=== PATIENT | female | born 1935 | race Caucasian/White ===

== ENCOUNTER 2017-12-18 09:17 | Inpatient (IN) | payer MEDICARE, OTHER ==
[~2017-12-18] VITALS: Ht 170.2 cm; Wt 48.2 kg
--- NOTE | ~2017-12-18 | EC ---
PATIENT:JOHN CHAUDHRY DATE OF SERVICE: 12/18/17 SEX: F MEDICAL RECORD: [id number] DATE OF : 33 LOCATION:D.M2 D.210 AGE OF PATIENT: 82 ADMISSION DATE: 12/19/17 REFERRING PHYSICIAN: INTERPRETING PHYSICIAN: LANDON BERNAL MD ECHOCARDIOGRAM REPORT ECHO CHARGES 4 ECHO COMPLETE CLINICAL DIAGNOSIS: TX/CHEST PAIN HX OF PACEMAKER ECHOCARDIOGRAPHIC MEASUREMENTS (adult normal given) AC root (d.<3.7cm) 3.5 cm LV Septum d (<1.2 cm> 1.9 cm Valve Excursion 1.6 cm LV Septum (systole) 2.1 cm Left Atria (s.<4.0cm> 3.9 cm LVPW d(<1.2cm) 1.9 cm RV (d.<2.3cm) 3.7 cm LVPW (sytole) 2.0 cm LV diastole(<5.6CM) 3.8 cm MV E-F(>70mm/sec) cm LV systole 2.1 cm LVOT Diameter 1.2 cm MV exc.(>10mm) 1.8 cm Est.ejection fraction (50-75%) % Pericardial Effusion N DOPPLER: LVIT cm/sec A 160 cm/sec E 131 cm/sec LA cm/sec RVSP 54 mmHg LVOT 78 cm/sec AOP1/2T 605 m/s Asc. Ao 158 cm/sec RVOT 98 cm/sec RA cm/sec PA 126 cm/sec AV Gradient Peak 10.0 mmHg AV Mean 4.66 mmHg AV Area 1.7 cm MV Gradient Peak 15.50mmHg MV Mean 7.55 mmHg MV Area cm COMMENTS: Field Operations Manager: Stephan ZARATE Staff [employer] Officer: 1 Dr. Bernal TAPE# PACS DATE OF SERVICE: 12/18/2017 FINDINGS: 1. Left ventricular chamber size is within normal limits. Left ventricular systolic function is normal. Overall ejection fraction is estimated at 60%. 2. Left atrium is within normal limits at 3.2 cm. Right atrium and right ventricle chamber sizes are moderately dilated. 3. Valvular structures have normal structure and motion. 4. Doppler interrogation reveals sdmqefcz-bx-sahqye aortic insufficiency, dxkj-mi-xddcooic mitral regurgitation, jftdkzja-by-frnwjw tricuspid ECHOCARDIOGRAM REPORT [id number] JOHN CHAUDHRY regurgitation. No other valvular insufficiency or stenosis. Pulmonary systolic pressure is elevated, estimated at 54 mmHg. 5. No evidence of pericardial effusion or left ventricular thrombus. TRANSINT:[id number] Voice Confirmation ID: [id number] DOCUMENT ID: [id number] LANDON BERNAL MD at 1025 CC: [id number] DICTATION DATE: 12/19/17 1124 CONSTRUCTION DRIVER: 12/19/17 1455 DIS IN 12/20/17 [place] [address] [place] [id number]
--- NOTE | ~2017-12-18 | DS ---
PATIENT:JOHN CHAUDHRY :33 MEDICAL RECORD: [id number] DISCHARGE SUMMARY ADMISSION DATE: 12/19/17 DISCHARGE DATE: 12/20/17 DATE OF DISCHARGE: 12/20/2017. DIAGNOSES: 1. Unstable angina. 2. Coronary artery disease. 3. Percutaneous transluminal coronary angioplasty stent, left anterior descending this admission. 4. Coumadin anticoagulation. 5. Atrial fibrillation, chronic. HOSPITAL COURSE: Ms. Chaudhry presents with anginal symptomatology. No history of ischemic heart disease, found to have significant disease of the LAD, underwent successful PTCA stent of the LAD. She was discharged home with Plavix times 1 month, restart Coumadin in 1 day after discharge. FOLLOWUP: With [facility] in 1 month. TRANSINT:[id number] Voice Confirmation ID: [id number] DOCUMENT ID: [id number] LANDON FLEMING MD at 1025 CC: [id number] DICTATION DATE: 12/20/17 1020 ROLLED [place] MILL OPERATOR: 12/20/17 1256 DIS IN 12/20/[address] [address]
--- NOTE | ~2017-12-18 | HEMODYNAMI ---
PATIENT:JOHN CHAUDHRY MEDICAL RECORD: [id number] : 33 [facility] D.2109 [id number] ADMISSION DATE: 12/19/17 Generatedon:12/20/201710:18 Patient name: JOHN CHAUDHRY Patient #: [id number] SSN: : 1935 Date of study: 12/20/2017 Page: Of Hemodynamic Procedure Report Patient Data Patient Demographics Procedure consent was obtained First Name: JOHN Gender: Female Last Name: RICHA : 1935 Middle Initial: R Age: 82 year(s) Patient #: [id number] Race: Additional ID: [id number] Contact details Address: [address] [place] [address] State: [place] City: [facility] Zip code: [address] Past Medical History Allergies Allergen Reaction Date Comments Reported Other allergy 12/20/2017 penicillin Admission Admission Data Admission Date: 12/19/2017 Admission Time: 18:25 Room #: D.2109 Lab Results Lab Result Date: 12/20/2017 Lab Result Time: 0:00 Biochemistry Name Units Result Min Max BUN mg/dl 25 --(----)-* 7 18 Creatinine mg/dl 1.5 --(----)-* 0.6 1.3 CBC Name Units Result Min Max Hemoglobin g/dl 12.4 *-(----)-- 13.5 17.5 Procedure Procedure Types Cath Procedure Diagnostic Procedure LHC LHC w/Coronaries FFR/IVUS Intra-Coronary IVUS Initial PCI Procedure Coronary Stent Coronary Stent Initial Miscellaneous Procedures Moderate Sedation up to 30 minutes Procedure Description Procedure Date Procedure Date: 12/20/2017 Procedure Start Time: 10:02 Procedure End Time: 10:17 Procedure Staff Name Function Mina Bernal MD Performing Physician Helen Musa RT Scrub Neena Cohen RN Nurse Guerita Manzano RT Monitor Indication Angina Procedure Data Cath Procedure Fluoroscopy Diagnostic fluoroscopy Total fluoroscopy Time: 3.6 time: 3.6 min min Diagnostic fluoroscopy Total fluoroscopy dose: 210 dose: 210 mGy mGy Contrast Material Contrast Material Type Amount (ml) Isovue 300 89 Entry Location Entry Primary Successful Side Size Upsize Upsize Entry Closure Succes sful Closure Location (Fr) 1 (Fr) 2 (Fr) Remarks Device Remarks Femoral Right 5 Fr 6 Fr Exoseal artery Short Estimated blood loss: 5 ml Diagnostic catheters Device Type Used For End Catheter Placement MULTIPACK Pigtail 5 Fr LV Angiography catheter MULTIPACK JL 4.0 5Fr Left Coronary catheter Angiography MULTIPACK 3DRC 5Fr Right Coronary catheter Angiography Procedure Complications No complications Procedure Medications Medication Administration Route Dosage 0.9% NaCl I.V. 100 ml/hr Oxygen NC 2 l/min Lidocaine 2% added to field 20 Heparin Flush Bag added to field 1 bags (1000units/500ml NS) Fentanyl I.V. 50 mcg Versed I.V. 1 mg Heparin Bolus I.V. 4000 units Hemodynamics Rest HGB: 12.4 (g/dl) Heart Rate: 76 (bpm) Pressure Samples Time Site Value (mmHg) Purpose Heart Use Rate(bpm) 10:04 LV 78/-1,11 Snapshot 79 Snapshots Pre Cath Intra NCS Post Cath Vital Signs Time Heart Resp SPO2 etCO2 NIBP (mmHg) Rhythm Pain Sedation Rate (ipm) (%) (mmHg) Status Level (bpm) 9:45:10 82 16 98 27.4 171/111(156) NSR 0 (11) 10(A) , No pain 9:49:36 86 15 98 17 167/76(152) NSR 0 (11) 10(A) , No pain 9:53:56 80 17 100 0 153/86(133) NSR 0 (11) 10(A) , No pain 9:58:12 81 18 96 0 129/77(109) NSR 0 (11) 10(A) , No pain 10:02:22 73 14 99 16.3 126/69(98) NSR 0 (11) 9(A) , No pain 10:06:32 83 17 100 19.3 128/66(90) NSR 0 (11) 9(A) , No pain 10:10:42 82 20 99 18.5 119/70(102) NSR 0 (11) 9(A) , No pain 10:14:48 81 20 99 20 124/71(87) NSR 0 (11) 10(A) , No pain Medications Time Medication Route Dose Verified Delivered Reason Not es Effectiveness by by 9:46:24 0.9% NaCl I.V. 100ml/hr Mina Chaudhary used for Gabe Cohen RN procedure 9:46:33 Oxygen NC 2 l/min Mina Chaudhary Per physician Gabe Cohen RN 9:46:45 Lidocaine 2% added 20ml Mina Enriquez for local to vial Gabe Bernal MD anesthetic field 9:46:53 Heparin Flush added 1 bags Mina Enriquez used for Bag to Gabe Bernal MD procedure (1000units/500ml field NS) 10:00:01 Fentanyl I.V. 50 mcg Mina Chaudhary for sedation Gabe Cohen RN 10:00:10 Versed I.V. 1 mg Mina Chaudhary for sedation Gabe Cohen RN 10:08:07 Heparin Bolus I.V. 4000 Mina Chaudhary for joanne ified units Gabe Cohen RN anticoagulation by Procedure Log Time Note 9:19:11 Informed consent obtained and on chart 9:19:14 Diagnostic Cath Status : Elective 9:19:55 Indication : Angina 9:20:02 Helen Musa RT(R) sent for patient. Start room use. 9:20:02 Time tracking: Regular hours 9:20:06 Plan of Care:Hemodynamics will remain stable., Cardiac rhythm will remain stable., Comfort level will be maintained., Respiratory function will remain adequate., Patient/ family verbilizes understanding of procedure., Procedure tolerated without complication., Recovers from procedure without complications.. 9:34:06 Patient received from Med II to CCL 2 Alert and oriented. Tansferred to table in Supine position. 9:36:38 Warm blankets applied, and chikis hugger turned on for patient comfort. 9:36:38 Correct patient and procedure confirmed by team. 9:36:39 ECG and BP/O2 sat monitors applied to patient. 9:36:40 Vital chart was started 9:46:24 0.9% NaCl 100ml/hr I.V. was administered by Neena Cohen RN; used for procedure; 9:46:33 Oxygen 2 l/min NC was administered by Neena Cohen RN; Per physician; 9:46:45 Lidocaine 2% 20ml vial added to field was administered by Mina Bernal MD; for local anesthetic; 9:46:53 Heparin Flush Bag (1000units/500ml NS) 1 bags added to field was administered by Mina Bernal MD; used for procedure; 9:53:03 Baseline sample Acquired. 9:53:10 Full Disclosure recording started 9:53:27 H&P Date Dictated: 12/18/2017 Within 30 days and on chart., H&P Addendum completed by physician on day of procedure. (MUST COMPLETE FOR ALL OUTPATIENTS). 9:53:29 Pre-procedure instructions explained to patient. 9:53:29 Pre-op teaching completed and patient verbalized understanding. 9:53:31 Family in waiting room. 9:53:33 Patient NPO since Midnight. 9:53:50 Patient allergic to Other allergypenicillin 9:53:52 Is the patient allergic to Iodine/contrast media? No. 9:53:53 Was the patient premedicated? No 9:54:09 Is patient on blood thinner?Yes 9:54:16 ACC The patient was administered the following blood thiners within the last 24 hours: ACCPlavix 9:54:46 pt states she last had coumadin on 12-18-17 9:54:48 Patient diabetic? No. 9:54:50 Previous problem with sedation/anesthesia? No ? 9:54:52 Snore? No 9:54:53 Sleep apnea? No 9:54:54 Deviated septum? No 9:54:55 Opens mouth fully? Yes 9:54:55 Sticks out tongue? Yes 9:54:57 Airway obstruction? No ? 9:54:59 Dentures? No ? 9:55:03 Pre procedure: right dorsailis pedis pulse 1+ Palpable, but thready & weak; easily obliterated 9:55:04 Pre procedure: left dorsailis pedis pulse 1+ Palpable, but thready & weak; easily obliterated 9:55:06 Patient pain scale 0/10 ?. 9:55:12 IV patent on arrival in right hand with 0.9% NaCl at O. 9:55:31 Lab Result : BUN 25 mg/dl 9:55:31 Lab Result : Creatinine 1.5 mg/dl 9:55:31 Lab Result : Hemoglobin 12.4 g/dl 9:55:34 Lab results completed and on chart. 9:55:39 Left groin area was prepped with chlora-prep and draped in sterile fashion 9:55:40 Alarms reviewed by R. N. 9:55:41 Sharps counted by scrub and verified by R.N. 9:58:46 Physician arrived 9:58:47 --------ALL STOP TIME OUT------ 9:58:48 Final Timeout: patient, procedure, and site verified with staff and physician. All members of the team are in agreement. 9:58:49 Left groin site verified by team. 9:58:52 Physical assessment completed. ASA score P 2 - A patient with mild systemic disease as per Mina Bernal MD. 9:58:56 Sedation plan: IV Moderate Sedation Medication:Versed, Fentanyl 9:59:01 Use device set Femoral Dx 9:59:02 ACIST Syringe (36313) opened to sterile field. 9:59:02 Bag Decanter (2002S) opened to sterile field. 9:59:02 Medline Cath Pack ([id number]) opened to sterile field. 9:59:03 SHEATH 5FR [place] (MHT164) opened to sterile field. 9:59:04 DIAGNOSTIC WIRE .035 260cm J wire (554821) opened to sterile field. 9:59:05 ACIST Hand Control (68097) opened to sterile field. 9:59:05 ACIST Manifold (70908) opened to sterile field. 9:59:06 DIAGNOSTIC Multipack 5Fr catheter set (YQ7333) opened to sterile field. 9:59:07 Tegaderm 4 x 4 (1626W) opened to sterile field. 10:00:01 Fentanyl 50 mcg I.V. was administered by Neena Cohen RN; for sedation; 10:00:10 Versed 1 mg I.V. was administered by Neena Cohen RN; for sedation; 10:02:17 Procedure started. 10:02:22 Local anesthetic to left femerol artery with Lidocaine 2% by Mina Bernal MD.INITIAL ACCESS ONLY 10:02:36 A 5 Fr sheath was inserted into the Right Femoral artery 10:02:54 A MULTIPACK Pigtail 5 Fr catheter was advanced over the wire and used for LV Angiography. 10:04:10 LV hemodynamics recorded. 10:04:11 LV gram done using NORRIS 10:04:13 Injector settings: Ml/sec: 5, Volume: 15, 10:04:20 EF : 60 % 10:04:26 Catheter removed. 10:04:30 A MULTIPACK JL 4.0 5Fr catheter was advanced over the wire and used for Left Coronary Angiography. 10:04:59 LCA angiography performed. 10:05:02 Injector settings: Ml/sec: 3, Volume: 6, 10:05:38 Catheter removed. 10:05:43 A MULTIPACK 3DRC 5Fr catheter was advanced over the wire and used for Right Coronary Angiography. 10:06:41 RCA angiography performed. 10:06:45 Injector settings: Ml/sec: 3, Volume: 6, 10:07:20 Catheter removed. 10:07:20 Proceeding to intervention. 10:07:41 SHEATH 6FR [place] (POH343) opened to sterile field. 10:07:41 INFLATOR Merit BasixCompak (RA0131) opened to sterile field. 10:07:42 [place] IVUS Catheter (79722Q) opened to sterile field. 10:08:07 Heparin Bolus 4000 units I.V. was administered by Neena Cohen RN; for anticoagulation; verified by 10:08:09 GUIDE 6FR XBLAD 3.5 catheter ([id number]) opened to sterile field. 10:09:27 WHISPER 190cm wire ([id number]) opened to sterile field. 10:09:39 Sheath upsized to a 6 Fr Short. 10:09:46 6 Fr xblad 3.5 guide catheter was inserted over the wire 10:09:49 whisper wire advanced. 10:09:51 Wire advanced across lesion. 10:09:59 IVUS catheter advanced over wire. 10:11:57 IVUS pass to LAD lesion performed. 10:12:01 IVUS catheter removed over wire. 10:14:19 Inflation Number: 1 A INTEGRITY RX 3.0 x 22 stent ([id number]) was prepped and advanced across the Mid LAD. The stent was deployed at 17 MUKUL for 0:10 (min:sec). 10:14:27 Stent catheter was removed intact over wire. 10:14:28 Wire removed. 10:14:29 Guide catheter removed. 10:14:40 EXOSEAL 6Fr (EX600) opened to sterile field. 10:14:49 Sheath removed intact; hemostasis achieved with Exoseal to the Right Femoral artery. 10:14:51 Procedure ended.(Physican Out) 10:15:52 Fluoroscopy time 03.60 minutes. 10:15:56 Fluoroscopy dose: 210 mGy 10:15:56 Flurop Dose total: 210 10:16:00 Contrast amount:Isovue 300 89ml. 10:16:02 Sharps counted by scrub and verified by R.N. 10:16:03 Insertion/operative site no bleeding no hematoma. 10:16:10 Post-op/insertion site Left Femoral artery dressed using a 4 x 4 and Tegaderm. 10:16:15 Post left femerol artery:stable 10:16:17 Post Procedure Pulses reassessed and unchanged 10:16:19 Post procedure rhythm: unchanged. 10:16:21 Estimated blood loss: 5 ml 10:16:23 Post procedure instruction explained to patient.Patient verbalizes understanding. 10:16:26 Patient needs reinforcement of post procedure teaching. 10:16:45 Procedure type changed to Cath procedure, Diagnostic procedure, LHC, LHC w/Coronaries, FFR/IVUS, Intra-Coronary IVUS Initial, PCI procedure, Coronary Stent, Coronary Stent Initial, Miscellaneous Procedures, Moderate Sedation up to 30 minutes 10:16:45 Procedure and supply charges have been captured, reviewed, submitted and are correct. 10:16:49 Procedure Complication : No complications 10:16:51 Vital chart was stopped 10:16:53 See physician's report for complete and final results. 10:16:56 Report given to [facility]. 10:16:58 Patient transfered to [facility] with Stretcher. 10:17:00 Procedure ended. 10:17:00 Full Disclosure recording stopped 10:17:42 ACC-PCI Only Patient was given prescriptions, or instructed by Mina Bernal MD to start/continue the following medications upon discharge: Plavix 10:17:44 End room use (Document Last) Intervention Summary Intervention Notes Time ActionType Lesion and Equipment Action# Pressure Duration Attributes Used 10:14:19 Place stent Mid LAD INTEGRITY RX 1 17 00:10 3.0 x 22 stent ([id number]) Device Usage Item Name Manufacture Quantity Catalog Hospital Part Current Minimal Lot# / Number Charge Number Stock Stock Serial# Code ACIST Acist 1 47444 776595 986109 104412 20 Syringe Medical (93527) Systems Inc Bag Decanter Microtek 1 2001S 456772 97620 655416 5 (2001S) Medical Inc. Medline Cath Cardinal 1 [id number] 845841 60067 696399 5 Pack Health (SDLV34884) SHEATH 5FR Terumo 1 QHC619 769934 622147 996097 40 [place] (CDC515) DIAGNOSTIC [facility] 1 510688 464275 207476 111160 30 WIRE .035 260cm J wire (281489) ACIST Hand Acist 1 26526 656812 754101 141030 5 Control Medical (73298) Systems Inc ACIST Acist 1 95155 207979 852748 197405 5 Manifold Medical (19681) Systems Inc DIAGNOSTIC Cardinal 1 AM9397 267127 83365 423119 30 Multipack Health 5Fr catheter set (YL1610) Tegaderm 4 x 3M 1 1626W 087979 824496 567865 5 4 (1626W) MULTIPACK Cardinal 1 122099 5 Pigtail 5 Fr Health catheter MULTIPACK JL Cardinal 1 415135 5 4.0 5Fr Health catheter MULTIPACK Cardinal 1 110789 5 3DRC 5Fr Health catheter SHEATH 6FR Terumo 1 KZS035 958378 156493 972326 40 [place] (LII801) INFLATOR Merit 1 OY1989 813970 305319 521770 15 [facility] BasixCompak (SJ3432) [place] 1 75203Y 616186 600537 926986 8 [place] IVUS Catheter (06151A) GUIDE 6FR Cardinal 1 [id number] 387931 906314 339940 10 XBLAD 3.5 Health catheter (88962481) WHISPER Mckay 1 [id number] 398496 307607 822890 5 190cm wire Vascular (6020439IR) INTEGRITY RX Medtronic 1 [id number] 195937 294465 788891 5 [id number] 3.0 x 22 stent ([id number]) EXOSEAL 6Fr Cardinal 1 EX600 900191 336138 959089 10 (EX600) Health Signature Audit [place] Stage Time Signature Unsigned Intra-Procedure 12/20/2017 Helen Musa 10:18:25 AM RT(R) Signatures Monitor : Guerita Mnazano Signature : RT Date : Time : [place] [id number] [facility] [address]
--- NOTE | ~2017-12-18 | HP ---
PATIENT: JOHN CHAUDHRY MEDICAL RECORD: [id number] ACCOUNT: [id number] LOCATION:[facility] D.2109 : 33 ADMISSION DATE: 12/19/17 HISTORY AND PHYSICAL EXAMINATION DIAGNOSES: 1. Non-Q-wave myocardial infarction. 2. Chest pain. 3. Sick sinus syndrome. 4. Status post pacemaker. 5. Paroxysmal atrial fibrillation. 6. Coumadin anticoagulation for atrial fibrillation. 7. Hypertension. HISTORY OF PRESENT ILLNESS: Ms. Chaudhry presents with chest discomfort. She has no history of ischemic heart disease. She only has history of dysrhythmia with atrial fibrillation, for which she is on metoprolol and she has a pacemaker. She is pain free at this time. Her troponin is mildly elevated. PHYSICAL EXAMINATION: GENERAL APPEARANCE: Well-nourished, well-developed, appears stated age. Level of distress, comfortable. PSYCHIATRIC: Mental status, alert, normal affect. Orientation, oriented to time, place and person. EYES: Lids and conjunctiva, noninjected. No discharge, no pallor. ENT: Lips, teeth, gums, normal dentition. Oropharynx, no cyanosis, no pallor. NECK: Carotid arteries, bilateral normal upstroke, no bruits, no thrills. JUGULAR VEINS: No jugular venous pressure or distention. CERVICAL LYMPH NODES: Nontender, nonenlarged. THYROID: Not enlarged. Nontender. No nodules. LUNGS: Respiratory effort, unlabored. CHEST: Normal curvature. No thoracic deformity. No chest wall tenderness. Percussion, resonant. Auscultation, clear. No wheezes, no rales, no rhonchi. CARDIOVASCULAR: Precordial exam, nondisplaced. No heaves or pericardial thrills. Rate and rhythm, regular. Heart sounds, normal S1, normal S2. No S3, no gallop, no rub. Systolic murmur, not heard. Diastolic murmur, not heard. EXTREMITIES: No cyanosis, no edema. Peripheral pulses, full and equal in all extremities, except as noted. No bruits appreciated. ABDOMEN: Soft, nondistended. Normal aorta. No bruit. Nontender. No masses. Liver, nontender, no hepatomegaly. Spleen, nontender, no splenomegaly. MUSCULOSKELETAL: No joint tenderness. No joint swelling. No erythema. NEUROLOGICAL: Normal gait, normal strength, normal tone. SKIN: Warm and dry. REVIEW OF SYSTEMS: The patient reports easy bruising but reports no swollen glands. The patient reports no fever, no night sweats, no significant weight gain, no significant weight loss. No significant exercise tolerance. The patient reports no dry eyes, no irritation, no vision change. Patient reports no difficulty hearing and no ear pain. Patient reports no frequent nose bleeds or nose and sinus problems. Patient reports on arm pain on exertion. No shortness of breath while lying down. No history of heart murmur. Patient reports no cough, no wheezing or coughing up blood. Patient reports no abdominal pain, no vomiting. Normal appetite. No diarrhea and not vomiting blood. No nausea and no constipation. Patient reports no incontinence. No difficulty urinating. No hematuria. No increased frequency. Patient reports HISTORY AND PHYSICAL [id number] TERLOUW,JOHN R no muscle aches. No weakness, no arthralgias, no back pain. No swelling of the extremities. Patient reports no abnormal mole, no jaundice, no rashes. Reports no loss of consciousness. No weakness and no numbness. No seizures, dizziness, or headaches. The patient reports no depression, no sleep disturbance, feeling safe in a relationship and no alcohol abuse. Patient reports on fatigue. Reports no runny nose or sinus pressure. No itching, no hives, and no frequent sneezing. OVERALL IMPRESSION: Most likely she has hemodynamically significant coronary artery disease. We will hold her Coumadin, give her vitamin K, and proceed with coronary angiography most likely not tomorrow, but the next day due to the elevated PT/INR. Further care depends upon the findings of the coronary angiography. TRANSINT:[id number] Voice Confirmation ID: [id number] DOCUMENT ID: [id number] LANDON FLEMING MD at 1021 CC: [id number] DICTATION DATE: 12/18/17 1105 TANK WORKER: 12/18/17 1137 ADM IN [place] [id number] [place] [address]
--- NOTE | ~2017-12-18 | OP ---
PATIENT NAME: JOHN CHAUDHRY MEDICAL RECORD: [id number] :33 LOCATION:D.M2 D.2109 ADMISSION DATE:12/19/17 SURGEON: LANDON FLEMING MD DATE OF OPERATION: 12/20/2017 DATE OF SERVICE: 12/20/2017 PROCEDURES: 1. Left heart catheterization. 2. Selective coronary angiography. 3. Left ventriculogram. 4. PTCA stent of LAD. 5. Intravascular ultrasound of LAD. PROCEDURE IN DETAIL: After informed consent was obtained and after detailed explanation of risks, benefits as well as alternative therapies, the patient elected to proceed with angiogram and angioplasty. The right femoral area was prepped and draped in normal sterile fashion. The right femoral artery was cannulated via modified Seldinger technique with placement of 6-Armenian sheath. All catheters exchanged through this sheath. FINDINGS: Left ventriculogram was performed in standard 30-degree NORRIS view, reveals good cardiac wall motion throughout all segments. Overall ejection fraction estimated at 60%. SELECTIVE CORONARY ANGIOGRAPHY: 1. Left main showed no significant angiographic disease. 2. Left anterior descending has greater than 70% mid vessel confirmed by intravascular ultrasound. 3. Left circumflex has moderate irregularities, but no flow-limiting stenosis. 4. Right coronary has moderate irregularities, but no flow-limiting stenosis. PTCA STENT OF THE LAD: The stent used was a 3.0 x 22 mm Integrity. Result was 0% residual stenosis. OVERALL IMPRESSION: Successful percutaneous transluminal coronary angioplasty stent of the left anterior descending going from greater than 70% initial stenosis to 0% residual. TRANSINT:[id number] Voice Confirmation ID: [id number] DOCUMENT ID: [id number] LANDON FLEMING MD at 1025 CC: [id number] DICTATION DATE: 12/20/17 1023 APICULTURE TEACHER: 12/20/17 1136 DIS IN 12/20/17 [place] [address]
[~2017-12-18 09:17] MED LIST: ATROVENT 0.03%30 ML NASAL; BAYER CHEWABLE81 MG PO; CARDIZEM30 MG PO; COUMADIN1 MG PO; COUMADIN2 MG PO; COUMADIN2.5 MG PO; IMODIUM2 MG PO; LEVOXYL50 MCG PO; LOPERAMIDE HCL2 MG PO; LOPRESSOR25 MG PO; MULTIPLE VITAMI1 TA1 PO; SANDOSTATIN20 MG/KIT IM; TYLENOL PM1 TAB PO; ULTRAM50 MG PO; VITAMIN B-122500 MCG PO; VITAMIN D31000 UNIT PO
[2017-12-18 10:05] LABS: BASOPHILS 1.5 % (0-2); EOSINOPHILS 4.4 % (0-7); HEMATOCRIT 36.9 % (36.0-48.0); HEMOGLOBIN 12.4 g/dL (12-16); IMMATURE GRANULOCYTES 0.2 % (0-5); LYMPHOCYTES 21.2 % (15-50); MCH 31.6 pg (26.0-34.0); MCHC 33.6 g/dL (31.0-37.0); MCV 93.9 fL (80.0-100.0); MEAN PLATELET VOLUME 10.6 fL (7.4-10.4); MONOCYTES 11.1 % (2-11); NEUTROPHILS 61.6 % (40-80); PLATELET COUNT 181 10x3/uL (130-400); RBC 3.93 10x6/uL (4.00-5.40); RDW 12.9 % (11.5-14.5); WBC 5.2 10x3/uL (4.8-10.8)
[2017-12-18 10:12] LABS: INR 1.98 (0.85-1.17); PROTIME 21.9 SECONDS (11.6-15.0)
[2017-12-18 10:14] LABS: D-DIMER-QUANTITATIVE 1.97 ug/mLFEU (0.20-0.54)
[2017-12-18 10:24] LABS: ALBUMIN 3.9 g/dL (3.4-5.0); ALKALINE PHOSPHATASE 94 U/L (46-116); ALT (SGPT) 28 U/L (10-68); BILIRUBIN - TOTAL 1.24 mg/dL (0.2-1.3); CALC OSMOLALITY 281 mosm/kg (275-300); CALCIUM 9.6 mg/dL (8.5-10.1); CARBON DIOXIDE 27.3 mmol/L (21.0-32.0); CHLORIDE - SERUM 103 mmol/L (98-107); CREATININE - SERUM 1.5 mg/dL (0.6-1.3); GLUCOSE 95 mg/dL (74-106); POTASSIUM - SERUM 4.1 mmol/L (3.5-5.1); PROTEIN - SERUM 6.7 g/dL (6.4-8.2); SODIUM 139 mmol/L (136-145); UREA NITROGEN 25 mg/dL (7-18); eGFR NON AFRICAN AMERICAN 35 mL/min (90-120)
[2017-12-18 10:40] LABS: CHOLESTEROL, TOTAL 158 mg/dL (0-200); CKMB 4.6 U/L (0.0-3.6); CREATINE KINASE 213 UL (21-215); HDL CHOLESTEROL 80 mg/dL (32-96); LDL CHOLESTEROL 61 mg/dL (0-100); LDL-HDL RATIO 0.8 ratio (1.5-3.5); MAGNESIUM - SERUM 1.2 mg/dL (1.8-2.4); PRO BNP 852 pg/mL (0-450); TRIGLYCERIDE 86 mg/dL (30-200)
[2017-12-18 10:48] LABS: TROPONIN-I 0.357 ng/mL (0.000-0.060)
[2017-12-18 12:30] LABS: TROPONIN-I 0.773 ng/mL (0.000-0.060)
[2017-12-18] MEDS ORDERED: GABAPENTIN100 MG PO (16:59)
[2017-12-18 17:02] VITALS: BP 178/94; BMI 16.6
[2017-12-18 17:50] LABS: CREATINE KINASE 270 UL (21-215)
[2017-12-18 17:51] LABS: CKMB 8.7 U/L (0.0-3.6); TROPONIN-I 2.191 ng/mL (0.000-0.060)
[2017-12-18 20:26] VITALS: BP 154/76
[2017-12-18 23:47] LABS: CREATINE KINASE 295 UL (21-215)
[2017-12-18 23:48] LABS: CKMB 12.8 U/L (0.0-3.6); TROPONIN-I 5.925 ng/mL (0.000-0.060)
[2017-12-19 03:34] VITALS: BP 120/66
[2017-12-19 07:00] VITALS: BP 143/81
[2017-12-19 12:48] VITALS: BP 119/73
[2017-12-19 16:00] VITALS: BP 126/62
[2017-12-19 21:41] VITALS: BP 115/68
[2017-12-20 01:10] VITALS: BP 135/75
[2017-12-20 04:58] VITALS: BP 148/81
[2017-12-20 08:14] VITALS: BP 154/88
[2017-12-20 11:19] VITALS: Ht 170.2 cm; Wt 48.2 kg
[2017-12-20] MEDS ORDERED: PLAVIX75 MG PO (13:27)
[2017-12-20 16:13] VITALS: BP 134/68
== END 2017-12-20 17:46 | disposition home or self-care (01) | DRG 249 ==
LOC: D.ER 09:17 → D.M2 13:06 → OBSVTIME 13:06 → D.M2 13:58 → OBSVTIME 12-19 18:25 → D.M2 12-20 17:46
PROVIDERS: Family Medicine; Internal Medicine Interventional Cardiology
PROC: B2111ZZ Fluoroscopy of Multiple Coronary Arteries using Low Osmolar Contrast (ICD-10-PCS; 2017-12-20)
PROC: B2151ZZ Fluoroscopy of Left Heart using Low Osmolar Contrast (ICD-10-PCS; 2017-12-20)
PROC: B240ZZ3 Ultrasonography of Single Coronary Artery, Intravascular (ICD-10-PCS; 2017-12-20)
PROC: 02703DZ Dilation of Coronary Artery, One Artery with Intraluminal Device, Percutaneous Approach (ICD-10-PCS; principal; 2017-12-20 09:20)
PROC: 4A023N7 Measurement of Cardiac Sampling and Pressure, Left Heart, Percutaneous Approach (ICD-10-PCS; 2017-12-20 09:20)
DX: I21.4 Non-ST elevation (NSTEMI) myocardial infarction (principal); I25.110 Atherosclerotic heart disease of native coronary artery with unstable angina pectoris; I48.0 Paroxysmal atrial fibrillation; Z79.01 Long term (current) use of anticoagulants; I10 Essential (primary) hypertension; Z95.0 Presence of cardiac pacemaker

== ENCOUNTER 2018-01-01 09:26 | Observation (INO) | payer MEDICARE, OTHER ==
[~2018-01-01] VITALS: Ht 170.2 cm; Wt 48.2 kg
--- NOTE | ~2018-01-01 | HP ---
PATIENT: JOHN CHAUDHRY MEDICAL RECORD: [id number] ACCOUNT: [id number] LOCATION:[address] : 34 ADMISSION DATE: 01/01/18 HISTORY AND PHYSICAL EXAMINATION REASON FOR ADMISSION: Substernal chest pain. HISTORY OF PRESENT ILLNESS: The patient is an 82-year-old female who underwent an LAD PTCA 2 weeks ago after non-Q-wave PR. She said she had felt well until today when she was sitting or standing looking at some ducks in a rosado. She developed substernal chest pain that was 9/10. She said it radiated into her left upper arm below the elbow, she had associated diaphoresis and shortness of breath without nausea. Her daughter noticed she was not feeling well and called 911. She had 2 nitroglycerin en route with improvement of pain from a 9 to a 6 and then was given 325 mg aspirin and then morphine in the ER, which relieved her pain totally. She is now pain free. She denies any recent cough, sputum production, hemoptysis or leg edema. 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 SURGICAL HISTORY: Pacemaker placement with battery replacement in the last year, 3 abdominal surgeries for SMA syndrome, small bowel excision, cataract removed OU, ileostomy. ALLERGIES: PENICILLIN CAUSING SEVERE HIVES. FAMILY HISTORY: Parents had cardiovascular disease. SOCIAL HISTORY: She has moved to this area about 3 years ago, has a daughter living here who is in the room today. She is a nonsmoker and nondrinker. MEDICATIONS: Warfarin 2 mg on and 1 mg other days, Plavix 75 mg p.o. daily, metoprolol 25 mg p.o. daily, aspirin 81 mg daily, gabapentin 100 mg p.o. q.a.m., Atrovent nasal spray 2 nasal sprays each nostril t.i.d., levothyroxine 50 mcg p.o. q.a.m. a.c., vitamin D 2000 units p.o. daily, vitamin B12 1000 mcg tablet daily, multivitamin 1 daily. REVIEW OF SYSTEMS: CONSTITUTIONAL: Recently, no fever or fatigue. Has had stable weight. HEENT: No recent visual change, sinus congestion, or sore throat. RESPIRATORY: No severe cough. CARDIAC: No exertional chest pain, but had rest chest pain today as mentioned with radiation into her left arm associated with diaphoresis. GASTROINTESTINAL: No nausea, vomiting, change in stools or blood per rectum, history of peptic ulcer disease. 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 MUSCULOSKELETAL: No arthralgias. NEUROLOGICAL: No history of stroke, TIA, or vascular headaches. INTEGUMENTARY: No rash or itching. PSYCHIATRIC: Denies depressed mood. HISTORY AND PHYSICAL [id number] JOHN CHAUDHRY PHYSICAL EXAMINATION: VITAL SIGNS: Temperature 94.5 Fahrenheit, pulse 82 and regular, respirations are 24, blood pressure 158/80, O2 saturation of 99% on room air. GENERAL: The patient is thin, alert, in no acute distress. HEENT: Normocephalic. Eyes are clear. Sclerae nonicteric. Oropharynx unremarkable. NECK: No bruits or masses. CHEST: Clear without wheeze or rales. HEART: Regular rate without MGR. PMI appropriate. No rub is appreciated. ABDOMEN: Soft. EXTREMITIES: No edema. PROJECT MANAGEMENT DIRECTOR: Deferred at this time. NEUROLOGIC: Oriented to person, place, and time. Cranial nerves grossly intact. Gait was not tested. LABORATORY DATA: White count of 6600, H&H of 11.9 and 35.3 respectively. INR of 1.0. D-dimer of 5.37. Elevated BUN and creatinine of 27 and 1.8. Glucose 122, nonfasting. Bilirubin is 1.52. Liver functions are normal, otherwise amylase and lipase were not drawn. Cardiac enzymes are negative. No imaging has been performed. EKG shows paced rhythm. ASSESSMENT: 1. Substernal chest pain with recent PTCA of LAD, etiology unknown. 2. History of ldeimhuh-ez-olfyno aortic insufficiency, zjvxuevm-cc-adpfdw tricuspid regurgitation, hkeh-pk-qeykvlxq mitral regurgitation, history of sick sinus syndrome, post pacemaker placement, paroxysmal atrial fibrillation on anticoagulation, essential hypertension, history of left circumflex and right coronary artery moderate atherosclerotic irregularities, not flow limiting per recent cath 2 weeks previously. Her D-dimer is elevated, however. PLAN: CTA has been ordered by Dr. Guerrero. Dr. Muller is on for cardiology asked that we admit and he will evaluate for cardiac cause of chest pain. The patient is currently comfortable, further workup will be pending her CTA result. TRANSINT:[id number] Voice Confirmation ID: [id number] DOCUMENT ID: [id number] KALYN BAIN MD at 1257 CC: [id number] DICTATION DATE: 01/01/18 1239 GEOTECHNICAL DEPARTMENT MANAGER: 01/01/18 1402 ADM IN [place] [id number] [place] [id number]
--- NOTE | ~2018-01-01 | HEMODYNAMI ---
PATIENT:JOHN CHAUDHRY MEDICAL RECORD: [id number] : 34 [facility] [address] [id number] ADMISSION DATE: 01/01/18 Generatedon:01/02/20189:47 Patient name: JOHN CHAUDHRY Patient #: [id number] SSN: : 1935 Date of study: 01/02/2018 Page: Of Hemodynamic Procedure Report Patient Data Patient Demographics Procedure consent was obtained First Name: JOHN Gender: Female Last Name: RICHA : 1935 Middle Initial: R Age: 82 year(s) Patient #: [id number] Race: Additional ID: [id number] Contact details Address: [address] [place] [address] State: [place] City: [facility] Zip code: [address] Past Medical History Allergies Allergen Reaction Date Comments Reported Other allergy 12/20/2017 penicillin Other allergy 01/02/2018 N Admission Admission Data Admission Date: 01/01/2018 Admission Time: 11:46 Room #: D.2121 Lab Results Lab Result Date: 01/02/2018 Lab Result Time: 0:00 Biochemistry Name Units Result Min Max BUN mg/dl 25 --(----)-* 7 18 Creatinine mg/dl 1.8 --(----)-* 0.6 1.3 CBC Name Units Result Min Max Hemoglobin g/dl 38.1 --(----)-* 13.5 17.5 Procedure Procedure Types Cath Procedure Diagnostic Procedure LHC LHC w/Coronaries Procedure Description Procedure Date Procedure Date: 01/02/2018 Procedure Start Time: 9:29 Procedure End Time: 9:40 Procedure Staff Name Function Guerita Manzano RT Monitor Shaylee Aiken RT Scrub Lyndon Post RN Nurse Forest Muller MD Performing Physician Procedure Data Cath Procedure Fluoroscopy Diagnostic fluoroscopy Total fluoroscopy Time: 1.6 time: 1.6 min min Diagnostic fluoroscopy Total fluoroscopy dose: 148 dose: 148 mGy mGy Contrast Material Contrast Material Type Amount (ml) Isovue 300 62 Entry Location Entry Primary Successful Side Size Upsize Upsize Entry Closure Succes sful Closure Location (Fr) 1 (Fr) 2 (Fr) Remarks Device Remarks Femoral Left 5 Fr Exoseal artery Estimated blood loss: 10 ml Diagnostic catheters Device Type Used For End Catheter Placement MULTIPACK JL 4.0 5Fr Procedure catheter MULTIPACK 3DRC 5Fr Procedure catheter MULTIPACK Pigtail 5 Fr Procedure catheter Procedure Complications No complications Procedure Medications Medication Administration Route Dosage Oxygen NC 2 l/min Heparin Flush Bag added to field 2 bags (1000units/500ml NS) 0.9% NaCl I.V. 100 ml/hr Fentanyl I.V. 25 mcg Versed I.V. 0.5 mg Brilinta P.O. 180 mg Hemodynamics Rest HGB: 38.1 (g/dl) Heart Rate: 96 (bpm) Pressure Samples Time Site Value (mmHg) Purpose Heart Use Rate(bpm) 9:36 LV 153/1,6 Snapshot 113 9:36 AO 144/79(109) Pullback 104 9:36 LV 150/13,12 Pullback 104 Gradients Valve Time Site 1 Site 2 Mean SEP/DFP Peak To Heart Use (mmHg) (sec/min) Peak Rate (mmHg) (bpm) Aortic 9:36 LV AO 7 21 6 104 150/13,12 144/79(109) Calculations Valve P-P Mean Valve Index Valve Source Name Gradient Area Flow (cm2) Aortic 6 7 6 7 Snapshots Pre Cath Intra NCS Post Cath Vital Signs Time Heart Resp SPO2 etCO2 NIBP (mmHg) Rhythm Pain Sedation Rate (ipm) (%) (mmHg) Status Level (bpm) 9:18:44 97 16 97 0 156/101(134) NSR 0 (11) 10(A) , No pain 9:23:19 87 18 98 0 149/94(122) NSR 0 (11) 10(A) , No pain 9:27:51 89 17 96 0 143/95(130) NSR 0 (11) 10(A) , No pain 9:32:22 120 17 94 0 143/97(117) NSR 0 (11) 10(A) , No pain 9:36:54 107 16 94 0 157/88(113) NSR 0 (11) 10(A) , No pain Medications Time Medication Route Dose Verified Delivered Reason Notes Eff ectiveness by by 9:28:32 Oxygen NC 2 Forest Haney Per l/min [facility] Kosta Post RN physician 9:28:41 Heparin Flush added 2 Forest Haney used for Bag to bags [facility] Kosta Post RN procedure (1000units/500ml field NS) 9:28:49 0.9% NaCl I.V. 100 Forest Haney Per ml/hr [facility] Kosta Post RN physician 9:28:55 Fentanyl I.V. 25 Forest Haney for sedation mcg [facility] Kosta Post RN, MD 9:29:04 Versed I.V. 0.5 Forest Haney for sedation mg [facility] Kosta Post RN, MD 9:38:14 Brilinta P.O. 180 Forest H[address] for mg [facility] Kosta Post RN antiplatelet MD therapy Procedure Log Time Note 9:02:45 Diagnostic Cath status Elective 9:02:49 Lyndon Post RN sent for patient. Start room use. 9:02:52 Time tracking: Call back 9:02:58 Plan of Care:Hemodynamics will remain stable., Cardiac rhythm will remain stable., Comfort level will be maintained., Respiratory function will remain adequate., Patient/ family verbilizes understanding of procedure., Procedure tolerated without complication., Recovers from procedure without complications.. 9:14:38 Patient received from PCU to CCL 1 Alert and oriented. Tansferred to table in Supine position. 9:14:40 Warm blankets applied, and chikis hugger turned on for patient comfort. 9:14:40 Correct patient and procedure confirmed by team. 9:14:41 Signed procedure consent form obtained from patient. 9:14:42 ECG and BP/O2 sat monitors applied to patient. 9:17:57 Vital chart was started 9:18:01 Baseline sample Acquired. 9:18:06 Rhythm: sinus rhythm 9:18:08 Full Disclosure recording started 9:18:24 H&P Date Dictated: 01/01/2018 Within 30 days and on chart.. 9:18:26 Pre-procedure instructions explained to patient. 9:18:28 Family in waiting room. 9:18:30 Patient NPO since Midnight. 9:18:50 Patient allergic to Other allergyPCN 9:20:59 Was the patient premedicated? Yes 9:21:04 Is patient on blood thinner?Yes 9:21:08 ACC The patient was administered the following blood thiners within the last 24 hours: ACCPlavix 9:21:15 Patient diabetic? No. 9:21:20 Snore? No 9:21:22 Sleep apnea? No 9:21:26 Dentures? No ? 9:21:32 Patient pain scale 0/10 ?. 9:24:51 Lab Result : Creatinine 1.8 mg/dl 9::51 Lab Result : BUN 25 mg/dl 9::51 Lab Result : Hemoglobin 38.1 g/dl 9:24:57 Lab results completed and on chart. 9:25:06 Left groin area was prepped with chlora-prep and draped in sterile fashion 9:25:09 Alarms reviewed by R. N. 9:25:10 Sharps counted by scrub and verified by R.N. 9:25:12 Physician paged 9:25:14 Physician arrived 9:25:15 --------ALL STOP TIME OUT------ 9:25:16 Final Timeout: patient, procedure, and site verified with staff and physician. All members of the team are in agreement. 9:25:18 Left groin site verified by team. 9:26:08 Use device set Femoral Dx 9:26:09 ACIST Syringe (44235) opened to sterile field. 9:26:10 Bag Decanter (2002S) opened to sterile field. 9:26:10 Medline Cath Pack ([id number]) opened to sterile field. 9:26:11 SHEATH 5FR [place] (DIE734) opened to sterile field. 9:26:12 DIAGNOSTIC WIRE .035 260cm J wire (387046) opened to sterile field. 9:26:14 ACIST Hand Control (74197) opened to sterile field. 9:26:15 ACIST Manifold (93845) opened to sterile field. 9:26:15 DIAGNOSTIC Multipack 5Fr catheter set ([id number]) opened to sterile field. 9:26:17 Tegaderm 4 x 4 (1626W) opened to sterile field. 9:26:32 PERCUTANEOUS ENTRY 19GA needle opened to sterile field. 9:26:37 Procedure started. 9:27:48 IV Extension Set opened to sterile field. 9:28:32 Oxygen 2 l/min NC was administered by Lyndon Post RN; Per physician; ::32 Zero performed for pressure channel P1 9:: Heparin Flush Bag (1000units/500ml NS) 2 bags added to field was administered by Lyndon Post RN; used for procedure; :: Zero performed for pressure channel P1 9::48 Zero performed for pressure channel P1 9::49 0.9% NaCl 100 ml/hr I.V. was administered by Lyndon Post RN; Per physician; : Fentanyl 25 mcg I.V. was administered by Lyndon Post RN; for sedation; : Zero performed for pressure channel P1 9:: Versed 0.5 mg I.V. was administered by Lyndon Post RN; for sedation; : Local anesthetic to left femerol artery with Lidocaine 2% by Forest Muller MD.INITIAL ACCESS ONLY 9:29:22 A 5 Fr sheath was inserted into the Left Femoral artery 9:29:43 A MULTIPACK JL 4.0 5Fr catheter was advanced over the wire and used for Procedure. 9:30:20 LCA angiography performed. 9:32:26 Catheter removed. 9:32:48 A MULTIPACK 3DRC 5Fr catheter was advanced over the wire and used for Procedure. 9:33:04 RCA angiography performed. 9:33:15 Catheter removed. 9:33:36 A MULTIPACK Pigtail 5 Fr catheter was advanced over the wire and used for Procedure. 9:33:44 LV gram done using NORRIS 9:36:31 DIAGNOSTIC WIRE .035 260cm J wire (230696) opened to sterile field. 9:36:50 EXOSEAL 5Fr (EX500) opened to sterile field. 9:37:19 Catheter removed. 9:37:32 Sheath removed intact; hemostasis achieved with Exoseal to the Left Femoral artery. 9:37:37 Procedure ended.(Physican Out) 9:38:14 Brilinta 180 mg P.O. was administered by Lyndon Post RN; for antiplatelet therapy; :38:26 Fluoroscopy time 01.60 minutes. :38:31 Fluoroscopy dose: 148 mGy 9:38:31 Flurop Dose total: 148 9:38:41 Contrast amount:Isovue 300 62ml. 9:38:43 Sharps counted by scrub and verified by R.N. 9:38:44 Insertion/operative site no bleeding no hematoma. 9:38:48 Post-op/insertion site Left Femoral artery dressed using a 4 x 4 and Tegaderm. 9:39:04 Post-procedure physical assessment completed. ASA score P 2 - A patient with mild systemic disease as per Forest Muller MD. 9:39:08 Post procedure rhythm: unchanged. 9:39:11 Estimated blood loss: 10 ml 9:39:13 Post procedure instruction explained to patient.Patient verbalizes understanding. 9:39:14 Patient needs reinforcement of post procedure teaching. 9:39:22 Procedure and supply charges have been captured, reviewed, submitted and are correct. 9:39:50 Procedure Complication : No complications 9:39:53 Vital chart was stopped 9:39:55 See physician's report for complete and final results. 9:39:57 Report given to [facility]. 9:40:06 Patient transfered to [facility] with Bed. 9:40:09 Procedure ended. 9:40:09 Full Disclosure recording stopped 9:40:12 End room use (Document Last) Device Usage Item Name Manufacture Quantity Catalog Hospital Part Current Minimal Lot# / Number Charge Number Stock Stock Serial# Code ACIST Acist 1 89280 975402 663225 045535 20 Syringe Medical (88834) Systems Inc Bag Decanter Microtek 1 2001S 102164 97786 122788 5 (2001S) Medical Inc. Medline Cath Cardinal 1 [id number] 211827 01500 696660 5 Pack Health ([id number]) SHEATH 5FR Terumo 1 [id number] 201921 486062 914362 40 [place] (EVR475) DIAGNOSTIC [facility] 2 004040 019662 024536 755326 30 WIRE .035 260cm J wire (952489) ACIST Hand Acist 1 95527 570437 546620 445824 5 Control Medical (49816) Systems Inc ACIST Acist 1 08670 336505 053084 380125 5 Manifold Medical (48272) Systems Inc DIAGNOSTIC Cardinal 1 PT5281 498303 94799 844570 30 Multipack Health 5Fr catheter set (BY0840) Tegaderm 4 x 3M 1 1626W 422034 632174 724155 5 4 (1626W) PERCUTANEOUS [facility] 1 A25209 653923 114073 5 ENTRY 19GA needle IV Extension Hospira 1 13936-08 108866 70118 410465 5 Set MULTIPACK JL Cardinal 1 774283 5 4.0 5Fr Health catheter MULTIPACK Cardinal 1 046060 5 3DRC 5Fr Health catheter MULTIPACK Cardinal 1 218720 5 Pigtail 5 Fr Health catheter EXOSEAL 5Fr Cardinal 1 EX500 854283 136677 319619 10 (EX500) Health Signature Audit [place] Stage Time Signature Unsigned Intra-Procedure 01/02/2018 Guerita Manzano 9:47:19 AM RT(R) Signatures Monitor : Guerita Manzano Signature : RT Date : Time : [address] [address]
--- NOTE | ~2018-01-01 | OP ---
PATIENT NAME: JOHN CHAUDHRY MEDICAL RECORD: [id number] :34 LOCATION:D.M2 D.2121 ADMISSION DATE:01/01/18 SURGEON: PARUL WEST MD DATE OF OPERATION: 01/02/2018 PROCEDURE: Left heart catheterization, selective coronary angiography, right femoral approach. CATHETERS: A 5-[place] Islander sheath, 5/4 left and right Arlene, 5/4 pig. The procedure was well tolerated. The patient returned, sheath removed. ExoSeal device placed. FINDINGS: Left ventriculography in 30-degree NORRIS view, normal wall motion, normal systolic function. CORONARY ANATOMY LEFT MAIN: Left main is free of disease. LAD: Area of previous stenting is widely patent. No significant evidence of acute thrombosis. CIRCUMFLEX: Free of disease. RIGHT CORONARY ARTERY: Free of disease. IMPRESSION: May have spontaneously thrombosed, although no focal wall motion and no obvious loss of diagonals, etc. Would treat with Brilinta for the remainder of antiplatelet therapy. TRANSINT:[id number] Voice Confirmation ID: [id number] DOCUMENT ID: [id number] PARUL WEST MD CC: [id number] DICTATION DATE: 01/02/18 0948 DIRECTOR OF SLOT OPERATIONS: 01/02/18 1528 ADM IN [facility] [address] [place] [address]
--- NOTE | ~2018-01-01 | CN ---
PATIENT NAME:JOHN CHAUDHRY MEDICAL RECORD: [id number] : 34 LOCATION:D. D.2121 ADMIT DATE: 01/01/18 ACCOUNT: [id number] CONSULTING PHYSICIAN: PARUL WEST MD REFERRING PHYSICIAN: AJIT DAMON MD DATE OF CONSULTATION: 01/02/2018 HISTORY OF PRESENT ILLNESS: An 82-year-old lady with known history of coronary artery disease, status post intervention to LAD approximately 2 weeks ago, admitted with chest pain different from previous. She has been taking her Plavix, but does have a history of short gut syndrome. Initial enzymes were negative, but she did have elevated D-dimer. Given decreased activity levels, we were concerned for pulmonary embolus; however, this was negative. Subsequently, enzymes were elevated where she is being taken to the laborer shellfish processing for visualization. ALLERGIES: PENICILLIN. PAST MEDICAL HISTORY: Includes; 1. Coronary artery disease as described above. 2. Sick sinus syndrome, status post pacemaker placement with chronic atrial fibrillation. 3. 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 MEDICATIONS: Include Coumadin per scale, metoprolol 25 every day, aspirin 81 every day, Plavix 75 every day, gabapentin 100 q.a.m., and Synthroid 50 mcg every day. REVIEW OF SYSTEMS: The patient reports easy bruising but reports no swollen glands. The patient reports no fever, no night sweats, no significant weight gain, no significant weight loss. No significant exercise tolerance. The patient reports no dry eyes, no irritation, no vision change. Patient reports no difficulty hearing and no ear pain. Patient reports no frequent nose bleeds or nose and sinus problems. Patient reports on arm pain on exertion. No shortness of breath while lying down. No history of heart murmur. Patient reports no cough, no wheezing or coughing up blood. Patient reports no abdominal pain, no vomiting. Normal appetite. No diarrhea and not vomiting blood. No nausea and no constipation. Patient reports no incontinence. No difficulty urinating. No hematuria. No increased frequency. Patient reports no muscle aches. No weakness, no arthralgias, no back pain. No swelling of the extremities. Patient reports no abnormal mole, no jaundice, no rashes. Reports no loss of consciousness. No weakness and no numbness. No seizures, dizziness, or headaches. The patient reports no depression, no sleep disturbance, feeling safe in a relationship and no alcohol abuse. Patient reports on fatigue. Reports no runny nose or sinus pressure. No itching, no hives, and no frequent sneezing. SOCIAL HISTORY: Lives here in [place]. Nonsmoker. Good family support. PHYSICAL EXAMINATION: GENERAL: Pleasant female in no acute distress. VITAL SIGNS: Blood pressure 140/70, pulse 96 and regular. HEENT: Normocephalic, atraumatic. HEART: Irregular, rate is controlled. A II/ systolic ejection murmur. LUNGS: Good air excursion. CONSULT REPORT [id number] JOHN CHAUDHRY ABDOMEN: Soft, nontender. EXTREMITIES: Pulses 2+ with no edema. DIAGNOSTIC DATA: ECG shows underlying ventricular paced. IMPRESSION: Acute coronary syndrome/ugb-YO-mwgcgnadt myocardial infarction. PLAN: Plan for angiography and intervention based on the above. TRANSINT:[id number] Voice Confirmation ID: [id number] DOCUMENT ID: [id number] PARUL WEST MD CC: [id number] DICTATION DATE: 01/02/18919 MEDICARE CONTACT SPECIALIST: 01/02/18 1358 ADM IN [place] [id number] [place] [address]
[~2018-01-01 09:26] MED LIST changes: +GABAPENTIN100 MG PO; +PLAVIX75 MG PO
[2018-01-01 09:51] LABS: BASOPHILS 1.2 % (0-2); EOSINOPHILS 8.9 % (0-7); HEMATOCRIT 35.3 % (36.0-48.0); HEMOGLOBIN 11.9 g/dL (12-16); IMMATURE GRANULOCYTES 0.2 % (0-5); LYMPHOCYTES 35.7 % (15-50); MCH 31.7 pg (26.0-34.0); MCHC 33.7 g/dL (31.0-37.0); MCV 94.1 fL (80.0-100.0); MEAN PLATELET VOLUME 9.7 fL (7.4-10.4); MONOCYTES 9.7 % (2-11); NEUTROPHILS 44.3 % (40-80); RBC 3.75 10x6/uL (4.00-5.40); RDW 12.8 % (11.5-14.5); WBC 6.6 10x3/uL (4.8-10.8)
[2018-01-01 09:53] LABS: PLATELET COUNT 222 10x3/uL (130-400)
[2018-01-01 10:14] LABS: ALBUMIN 3.9 g/dL (3.4-5.0); ALKALINE PHOSPHATASE 93 U/L (46-116); ALT (SGPT) 21 U/L (10-68); BILIRUBIN - TOTAL 1.52 mg/dL (0.2-1.3); CALC OSMOLALITY 279 mosm/kg (275-300); CALCIUM 9.4 mg/dL (8.5-10.1); CARBON DIOXIDE 24.1 mmol/L (21.0-32.0); CHLORIDE - SERUM 101 mmol/L (98-107); CREATININE - SERUM 1.8 mg/dL (0.6-1.3); GLUCOSE 122 mg/dL (74-106); POTASSIUM - SERUM 4.1 mmol/L (3.5-5.1); PROTEIN - SERUM 6.8 g/dL (6.4-8.2); SODIUM 137 mmol/L (136-145); UREA NITROGEN 27 mg/dL (7-18); eGFR NON AFRICAN AMERICAN 28 mL/min (90-120)
[2018-01-01 10:28] LABS: INR 1.1 (0.85-1.17); PROTIME 13.8 SECONDS (11.6-15.0)
[2018-01-01 10:30] LABS: CHOL - HDL RATIO 2.1 ratio (2.3-4.1); CHOLESTEROL, TOTAL 147 mg/dL (0-200); CKMB 2.6 U/L (0.0-3.6); CREATINE KINASE 149 UL (21-215); HDL CHOLESTEROL 69 mg/dL (32-96); LDL CHOLESTEROL 56 mg/dL (0-100); LDL-HDL RATIO 0.8 ratio (1.5-3.5); TRIGLYCERIDE 111 mg/dL (30-200); TROPONIN-I 0.024 ng/mL (0.000-0.060)
[2018-01-01 13:34] VITALS: BP 152/80; Ht 170.2 cm; Wt 48.2 kg
[2018-01-01] MEDS ORDERED: COUMADIN1 MG PO (13:49)
[2018-01-01] MEDS ORDERED: IMODIUM2 MG PO (13:51)
[2018-01-01 15:37] VITALS: BP 144/72
[2018-01-01 16:19] LABS: CKMB 21.7 U/L (0.0-3.6)
[2018-01-01 16:20] LABS: CREATINE KINASE 369 UL (21-215)
[2018-01-01 16:21] LABS: TROPONIN-I 16.908 ng/mL (0.000-0.060)
[2018-01-01 19:00] VITALS: BP 125/69
[2018-01-01 23:02] LABS: CKMB 20.1 U/L (0.0-3.6); CREATINE KINASE 392 UL (21-215)
[2018-01-01 23:03] LABS: TROPONIN-I 19.683 ng/mL (0.000-0.060)
[2018-01-02 02:44] LABS: BASOPHILS 0.2 % (0-2); EOSINOPHILS 2.8 % (0-7); HEMATOCRIT 38.1 % (36.0-48.0); HEMOGLOBIN 12.8 g/dL (12-16); IMMATURE GRANULOCYTES 0.2 % (0-5); LYMPHOCYTES 12.8 % (15-50); MCH 31.8 pg (26.0-34.0); MCHC 33.6 g/dL (31.0-37.0); MCV 94.5 fL (80.0-100.0); MEAN PLATELET VOLUME 10.1 fL (7.4-10.4); MONOCYTES 8.5 % (2-11); NEUTROPHILS 75.5 % (40-80); PLATELET COUNT 244 10x3/uL (130-400); RBC 4.03 10x6/uL (4.00-5.40); RDW 12.9 % (11.5-14.5)
[2018-01-02 02:45] LABS: WBC 12.3 10x3/uL (4.8-10.8)
[2018-01-02 02:53] LABS: ANION GAP 15.4 mmol/L (8-16); CALCIUM 9.6 mg/dL (8.5-10.1); CARBON DIOXIDE 26.7 mmol/L (21.0-32.0); CREATININE - SERUM 1.8 mg/dL (0.6-1.3); POTASSIUM - SERUM 4.1 mmol/L (3.5-5.1)
[2018-01-02 03:16] LABS: CKMB 14.8 U/L (0.0-3.6); CREATINE KINASE 427 UL (21-215)
[2018-01-02 03:17] LABS: TROPONIN-I 13.322 ng/mL (0.000-0.060)
[2018-01-02 04:00] VITALS: BP 140/75
[2018-01-02 20:00] VITALS: BP 146/89
[2018-01-02 21:39] VITALS: BP 143/77
[2018-01-03 00:06] VITALS: BP 115/67
[2018-01-03] MEDS ORDERED: CARDIZEM60 MG PO (08:23)
[2018-01-03] MEDS ORDERED: BRILINTA90 MG PO (08:27)
[2018-01-03 08:56] VITALS: BP 112/67
== END 2018-01-03 10:49 | disposition home or self-care (01) ==
LOC: D.ER 09:26 → D.M2 11:46 → OBSVTIME 11:46 → D.M2 01-03 10:49
PROVIDERS: Emergency Medicine; Internal Medicine Interventional Cardiology
DX: I21.4 Non-ST elevation (NSTEMI) myocardial infarction (principal); I25.10 Atherosclerotic heart disease of native coronary artery without angina pectoris; Z95.5 Presence of coronary angioplasty implant and graft; Z95.0 Presence of cardiac pacemaker; E03.9 Hypothyroidism, unspecified; I48.2 Chronic atrial fibrillation; I08.3 Combined rheumatic disorders of mitral, aortic and tricuspid valves; N17.9 Acute kidney failure, unspecified; K91.2 Postsurgical malabsorption, not elsewhere classified

== ENCOUNTER 2019-08-19 23:56 | Observation (INO) | payer MEDICARE, OTHER ==
[~2019-08-19] VITALS: Ht 170.2 cm; Wt 49.3 kg
--- NOTE | ~2019-08-19 | HEMODYNAMI ---
PATIENT:JOHN CHAUDHRY MEDICAL RECORD: [id number] : 33 LOCATION:[facility] D.[address] [facility]# [id number] ADMISSION DATE: 08/20/19 Generatedon:08/21/201916:53 Patient name: JOHN CHAUDHRY Patient #: [id number] SSN: [id number] : 1935 Date of study: 08/21/2019 Page: Of Hemodynamic Procedure Report Patient Data Patient Demographics Procedure consent was obtained First Name: JOHN Gender: Female Last Name: RICHA : 1935 [facility] Initial: R Age: 84 year(s) Patient #: [id number] Race: SSN: [id number] Additional ID: [id number] Contact details Address: [facility] [place] State: [place] City: [facility] [place] Zip code: [address] Past Medical History Allergies Allergen Reaction Date Comments Reported Other allergy 12/20/2017 penicillin Other allergy 01/02/2018 PCN Penicillins 08/21/2019 Admission Admission Data Admission Date: 08/20/2019 Admission Time: 3:20 Room #: [id number].2127 Height (in.): 66.93 BSA: 1.98 (m2) Height (cm.): 170 BMI: 29.76 (kg/m2) Weight (lbs.): 189.6 Weight (kg.): 86 Lab Results Lab Result Date: 08/21/2019 Lab Result Time: 0:00 Biochemistry Name Units Result Min Max BUN mg/dl 21 --(----)-* 7 18 Creatinine mg/dl 1.1 --(--*-)-- 0.6 1.3 eGFR ml/min 50 *-(----)-- 90 120 NONAFRICAN CBC Name Units Result Min Max Hematocrit % 36.5 *-(----)-- 42 54 Hemoglobin g/dl 12.6 -*(----)-- 13.5 17.5 Procedure Procedure Types Cath Procedure Diagnostic Procedure LHC LHC w/Coronaries FFR/IVUS FFR Initial FFR Additional Sedation Charges Moderate Sedation up to 30 minutes PCI Procedure Coronary Stent Coronary Stent Initial Procedure Description Procedure Date Procedure Date: 08/21/2019 Procedure Start Time: 16:27 Procedure End Time: 16:46 Procedure Staff Name Function Mina Bernal MD Performing Physician Shaylee Aiken RT Monitor Jessica Antonio RT Scrub Nikki Bull RN Nurse Helen Musa RT Monitor Procedure Data Cath Procedure Fluoroscopy Diagnostic fluoroscopy Total fluoroscopy Time: 4.6 time: 4.6 min min Diagnostic fluoroscopy Total fluoroscopy dose: 106 dose: 106 mGy mGy Contrast Material Contrast Material Type Amount (ml) Isovue 300 111 Entry Location Entry Primary Successful Side Size Upsize Upsize Entry Closure Succes sful Closure Location (Fr) 1 (Fr) 2 (Fr) Remarks Device Remarks Femoral Left 5 Fr 6 Fr Exoseal artery Short Estimated blood loss: 5 ml Diagnostic catheters Device Type Used For End Catheter Placement MULTIPACK Pigtail 5 Fr Procedure catheter MULTIPACK JL 4.0 5Fr Procedure catheter MULTIPACK 3DRC 5Fr Procedure catheter Procedure Complications No complications Procedure Medications Medication Administration Route Dosage Oxygen etCO2 Nasal cannula 2 l/min Lidocaine 2% added to field 20 Heparin Flush Bag added to field 2 bags (1000units/500ml NS) 0.9% NaCl I.V. 100 ml/hr Benadryl I.V. 50 mg Versed I.V. 1 mg Fentanyl I.V. 50 mcg Integrilin (Bolus I.V. 7.9 ml 2mg/ml) Heparin Bolus I.V. 3000 units Plavix P.O. 600 mg Hemodynamics Rest BSA: 1.98 (m2) HGB: 12.6 (g/dl) O2 Consumption: Estimated: 175.6 (ml/min) O2 Con sumption indexed: Estimated:88.69 (ml/min/m) Heart Rate: 70 (bpm) Snapshots Pre Cath Intra NCS Post Cath Vital Signs Time Heart Resp SPO2 etCO2 NIBP (mmHg) Rhythm Pain Sedation Rate (ipm) (%) (mmHg) Status Level (bpm) 16:22:59 65 10 96 23.2 126/74(109) NSR (Missing) 10(A) 16:27:02 73 12 98 0 112/75(93) NSR (Missing) 10(A) 16:31:00 73 13 94 0 119/73(100) NSR (Missing) 9(A) 16:35:02 79 18 97 21.7 121/73(97) NSR (Missing) 9(A) 16:39:05 67 14 98 0 115/65(97) NSR (Missing) 9(A) 16:43:05 75 15 96 0 110/70(95) NSR (Missing) 9(A) Medications Time Medication Route Dose Verified Delivered Reason Notes Effectiveness by by 16:22:28 Oxygen etCO2 2 Mina Jordan used for Nasal l/min Gabe Bull RN procedure cannula 16:22:35 Lidocaine 2% added 20ml Mina Mina for local to vial Gabe Bernal MD anesthetic field 16:22:40 Heparin Flush added 2 Mina Mina used for Bag to bags Gabe Bernal MD procedure (1000units/500ml field NS) 16:22:50 Benadryl I.V. 50 mg Mina Jordan used for iv Gabe Bull RN procedure infiltrated on arrival to transport pt to quality assurance qa lab analyst, benadryl was not able to be given by Med nurse. 16:22:50 0.9% NaCl I.V. 100 Mina Jordan Per physician ml/hr Gabe Bull RN 16:26:49 Versed I.V. 1 mg Mina Jordan for sedation Gabe Bull RN 16:28:07 Fentanyl I.V. 50 Mina Jordan for sedation mcg Gabe Bull RN 16:38:29 Heparin Bolus I.V. 3000 Mina Jordan for verif ied units Gabe Bull RN anticoagulation with dr bernal 16:40:06 Integrilin I.V. 7.9 Mina Jordan for waste d 2.1 (Bolus 2mg/ml) ml Gabe Bull RN antiplatelet ml of vial therapy 16:48:43 Plavix P.O. 600 Mina Jordan for mg Gabe Bull RN antiplatelet therapy Procedure Log Time Note 15:40:37 Nikki Bull RN sent for patient. Start room use. 15:43:38 Signed procedure consent form obtained from patient. 15:43:40 Procedure Status Urgent Heart Cath (IP). 15:43:41 Time tracking: Regular hours (M-F 7:00 - 5:00) 15:43:44 Plan of Care:Hemodynamics will remain stable., Cardiac rhythm will remain stable., Comfort level will be maintained., Respiratory function will remain adequate., Patient/ family verbilizes understanding of procedure., Procedure tolerated without complication., Recovers from procedure without complications.. 15:46:00 Patient allergic to Penicillins 15:46:08 Patient Weight : 189.6 lbs 15:46:10 Patient Height : 66.93 inches 15:46:47 Lab Result : Hematocrit 36.5 % 15::47 Lab Result : eGFR NONAFRICAN 50 ml/min ::47 Lab Result : BUN 21 mg/dl 15:: Lab Result : Creatinine 1.1 mg/dl 15::47 Lab Result : Hemoglobin 12.6 g/dl 16:04:35 Patient received from Med II to CCL 3 Alert and oriented. Tansferred to table in Supine position. 16:04:52 IV left hand D/C'd due to infiltration. 16:05:03 IV started by Nikki Bull RN inleft forearm with a 22 gauge IV catheter with 0.9% NaCl at KVO. 16:07:27 Warm blankets applied, and chikis hugger turned on for patient comfort. 16:07:28 Correct patient and procedure confirmed by team. 16:07:29 ECG and BP/O2 sat monitors applied to patient. 16:07:31 Pre-procedure instructions explained to patient. 16:07:31 Pre-op teaching completed and patient verbalized understanding. 16:07:33 Family in patients room. 16:07:38 Patient NPO since Midnight. 16:07:41 Is the patient allergic to Iodine/contrast media? No. 16:07:42 Is patient on blood thinner?Yes 16:07:44 ACC The patient was administered the following blood thiners within the last 24 hours: Coumadin 16:07:53 Patient diabetic? No. 16:07:55 Patient not . Patient is over age 55. 16:07:58 Previous problem with sedation/anesthesia? No ? 16:07:59 Snore? Yes 16:08:00 Sleep apnea? No 16:08:01 Deviated septum? No 16:08:02 Opens mouth fully? Yes 16:08:03 Sticks out tongue? Yes 16:08:05 Airway obstruction? No ? 16:08:07 Dentures? No ? 16:19:12 Lab results completed and on chart. 16:19:39 Left groin area was prepped with chlora-prep and draped in sterile fashion 16:19:40 Alarms reviewed by R. N. 16:19:40 Sharps counted by scrub and verified by R.N. 16:19:44 Use device set Femoral Dx 16:19:45 ACIST Syringe (60603) opened to sterile field. 16:19:45 Bag Decanter (2002S) opened to sterile field. 16:19:46 ACIST Hand Control (78328) opened to sterile field. 16:19:46 ACIST Manifold (11110) opened to sterile field. 16:19:47 Tegaderm 4 x 4 (1626W) opened to sterile field. 16:19:48 Medline Cath Pack ([id number]) opened to sterile field. 16:19:49 DIAGNOSTIC Multipack 5Fr catheter set (FT7269) opened to sterile field. 16:19:50 SHEATH 5FR [place] (QFP934) opened to sterile field. 16:19:51 EMERALD Guide Wire (295-004) opened to sterile field. 16:21:52 Vital chart was started 16:21:53 Baseline sample Acquired. 16:22:18 Rhythm: atrial fibrillation 16:22:19 Full Disclosure recording started 16:22:28 Oxygen 2 l/min etCO2 Nasal cannula was administered by Nikki Bull RN; used for procedure; 16:22:35 Lidocaine 2% 20ml vial added to field was administered by Mina Bernal MD; for local anesthetic; 16:22:40 Heparin Flush Bag (1000units/500ml NS) 2 bags added to field was administered by Mina Bernal MD; used for procedure; 16:22:50 Benadryl 50 mg I.V. was administered by Nikki Bull RN; used for procedure; iv infiltrated on arrival to transport pt to quality assurance qa lab analyst, benadryl was not able to be given by Med nurse. 16:22:50 0.9% NaCl 100 ml/hr I.V. was administered by Nikki Bull RN; Per physician; 16:25:51 --------ALL STOP TIME OUT------ 16::52 Final Timeout: patient, procedure, and site verified with staff and physician. All members of the team are in agreement. 16:25:53 Left groin site verified by team. 16:25:56 Fire Safety Assessment: A--An alcohol-based skin anteseptic being used preoperatively., C--Open oxygen or nitrous oxide is being used., D--An ESU, laser, or fiber-optic light is being used. 16:25:58 Physical assessment completed. ASA score P 2 - A patient with mild systemic disease as per Mina Bernal MD. 16:26:07 2) 60-89 Mildly reduced kidney function, and other findings (as for stage 1) point to kidney disease. 16:26:10 Maximum allowable contrast dose (3.7 X eGFR X 0.75)139 ml. 16:26:13 Sedation plan: IV Moderate Sedation Medication:Versed, Fentanyl 16:26:28 Zero performed for pressure channel P1 16::49 Versed 1 mg I.V. was administered by Nikki Bull RN; for sedation; 16::55 Procedure started. 16:27:06 Local anesthetic to left femerol artery with Lidocaine 2% by Mina Bernal MD.INITIAL ACCESS ONLY 16:27:48 A 5 Fr sheath was inserted into the Left Femoral artery 16:28:07 Fentanyl 50 mcg I.V. was administered by Nikki Bull RN; for sedation; 16:28:20 A MULTIPACK Pigtail 5 Fr catheter was advanced over the wire and used for Procedure. 16:28:31 LV gram done using NORRIS 16:28:33 Injector settings: Ml/sec: 10, Volume: 20, 16:28:54 EF : 55 % 16:28:55 Catheter removed. 16:29:04 A MULTIPACK JL 4.0 5Fr catheter was advanced over the wire and used for Procedure. 16:30:57 LCA angiography performed. 16:30:59 Catheter removed. 16:31:04 A MULTIPACK 3DRC 5Fr catheter was advanced over the wire and used for Procedure. 16:31:50 Catheter removed. 16:32:00 UNABLE TO ENGAGE RCA 16:32:50 GUIDE 6FR AR 2.0 catheter ([id number]) opened to sterile field. 16:32:52 SHEATH 6FR [place] (IFL200) opened to sterile field. 16:32:53 Middleton Verrata Plus pressure wire (41931B) opened to sterile field. 16:32:53 INFLATOR Merit BasixCompak (LR8246) opened to sterile field. 16:33:01 Sheath upsized to a 6 Fr Short. 16:33:29 6 Fr AR 2 guide catheter was inserted over the wire 16:34:14 RCA angiography performed. 16:35:26 FFR/IFR wire advanced. 16:35:51 Wire advanced across lesion. 16:36:07 mRCA lesion measured at .99 with IFR 16:36:13 Wire removed. 16:36:13 Guide catheter removed. 16:36:18 GUIDE 6FR XBLAD 3.5 catheter ([id number]) opened to sterile field. 16:37:42 6 Fr XBLAD 3.5 guide catheter was inserted over the wire 16:38:29 Heparin Bolus 3000 units I.V. was administered by Nikki Bull RN; for anticoagulation; verified with dr bernal 16:38:40 FFR/IFR wire advanced. 16:38:40 Wire advanced across lesion. 16:38:45 mLAD lesion measured at .88 with IFR 16:40:06 Integrilin (Bolus 2mg/ml) 7.9 ml I.V. was administered by Nikki Bull RN; for antiplatelet therapy; wasted 2.1 ml of vial 16:41:48 Place stent Inflation Number: 1 A COBRA RX 3.0 X 18 Stent was prepped and advanced across the Mid LAD 80. The stent was deployed at 19 MUKUL for 0:10 (min:sec) . 16:42:47 Stent catheter was removed intact over wire. 16:42:47 Wire removed. 16:42:47 Guide catheter removed. 16:42:57 EXOSEAL 6Fr (EX600) opened to sterile field. 16:43:26 Sheath removed intact; hemostasis achieved with Exoseal to the Left Femoral artery. 16:43:27 Procedure ended.(Physican Out) 16:43:46 Fluoroscopy time 04.60 minutes. 16:43:55 Fluoroscopy dose: 106 mGy 16:43:55 Flurop Dose total: 106 16:44:17 Dose Area Product 714.71 mGy/cm. 16:45:03 Contrast amount:Isovue 300 111ml. 16:45:05 Sharps counted by scrub and verified by R.N. 16:45:08 Insertion/operative site no bleeding no hematoma. 16:45:11 Post-op/insertion site Right Femoral artery dressed using a 4 x 4 and Tegaderm. 16:45:13 Post right femoral artery:stable 16:45:15 Post Procedure Pulses reassessed and unchanged 16:45:18 Post procedure rhythm: unchanged. 16:45:20 Estimated blood loss: 5 ml 16:45:22 Post procedure instruction explained to patient.Patient verbalizes understanding. 16:45:22 Patient needs reinforcement of post procedure teaching. 16:45:51 Procedure type changed to Cath procedure, Diagnostic procedure, LHC, LHC w/Coronaries, FFR/IVUS, FFR Initial, FFR Additional, Sedation Charges, Moderate Sedation up to 30 minutes, PCI procedure, Coronary Stent, Coronary Stent Initial 16:45:52 Procedure and supply charges have been captured, reviewed, submitted and are correct. 16:45:57 Procedure Complication : No complications 16:45:59 Vital chart was stopped 16:46:00 See physician's report for complete and final results. 16:46:04 Report given to [facility] II. 16:46:07 Patient transfered to Med II with Stretcher. 16:46:09 Procedure ended. 16:46:09 Full Disclosure recording stopped 16:46:15 ACC-PCI Only Patient was given prescriptions, or instructed by Mina Bernal MD to start/continue the following medications upon discharge: Plavix 16:46:17 End room use (Document Last) 16:48:43 Plavix 600 mg P.O. was administered by Nikki Bull RN; for antiplatelet therapy; 16:52:50 ACT drawn and resulted at 314 seconds. (normal therapeutic range 180-240 seconds). Intervention Summary Intervention Notes Time ActionType Lesion and Equipment Action# Pressure Duration Attributes Used 16:41:48 Place stent Mid LAD COBRA RX 1 19 00:10 3.0 X 18 Stent Device Usage Item Name Manufacture Quantity Catalog Hospital Part Current Minimal Lot# / Number Charge Number Stock Stock Serial# Code ACIST Syringe Acist 1 90523 324650 502914 847244 20 (23485) Medical Systems Inc Bag Decanter Microtek 1 2001S 866687 33670 714434 5 () Medical Inc. ACIST Hand Acist 1 22858 140495 256333 067616 5 Control Medical (13602) Systems Inc ACIST Manifold Acist 1 16105 084031 028020 489740 5 (13368) Medical Systems Inc Tegaderm 4 x 4 3M 1 1626W 610255 841698 147686 5 (1626W) Medline Cath Medline 1 [id number] 870925 49956 795086 5 Pack ([id number]) DIAGNOSTIC Cardinal 1 DQ2925 776233 87451 170606 30 Multipack 5Fr Health catheter set (RT3240) SHEATH 5FR Terumo 1 VMD518 156103 243327 148110 5 [place] (MIQ518) EMERALD Guide Cardinal 1 502-455 239307 453904 748994 5 Wire (502-455) Health MULTIPACK Cardinal 1 238265 5 Pigtail 5 Fr Health catheter MULTIPACK JL Cardinal 1 897288 5 4.0 5Fr Health catheter MULTIPACK 3DRC Cardinal 1 459182 5 5Fr catheter Health GUIDE 6FR AR Medtronic 1 [id number] 175231 55525 738906 1 2.0 catheter (KQ8KP09) SHEATH 6FR Terumo 1 FVB977 083776 005867 852080 40 [place] (BKQ513) Middleton Middleton 1 13689M 018418 976032612 203254 5 Verrata Plus pressure wire (03536X) INFLATOR Merit Merit 1 AM2255 465665 156639 779260 15 VMTurboMountain West Medical CenterAlgae International Group Medical (UC7029) GUIDE 6FR Cardinal 1 [id number] 651755 316308 579590 10 XBLAD 3.5 Health catheter ([id number]) COBRA RX 3.0 X Celonova 1 848-14-20522 391346 [id number] [id number] 1 [id number] 18 stent Biosciences () EXOSEAL 6Fr Cardinal 1 EX600 636043 279393 705710 10 (EX600) Health Signature Audit [place] Stage Time Signature Unsigned Intra-Procedure 08/21/2019 Helen Musa 4:49:15 PM RT(R) Intra-Procedure 08/21/2019 Nikki Bull RN 4:52:39 PM Intra-Procedure 08/21/2019 Mina Bernal 4:53:11 PM [id number] [place] [address]
[~2019-08-19 23:56] MED LIST changes: +BRILINTA90 MG PO; +CARDIZEM60 MG PO
[2019-08-20] VITALS (9 sets, daily range): BP systolic 126–221; BP diastolic 67–110; BMI 19.3
[2019-08-20] MEDS ORDERED: BAYER CHEWABLE81 MG PO (00:10)
[2019-08-20] MEDS ORDERED: DONEPEZIL HCL5 MG PO (00:12)
[2019-08-20] MEDS ORDERED: FAMVIR500 MG PO ×2 (00:13)
[2019-08-20 00:32] LABS: HEMOGLOBIN 11.5 g/dL (12-16); MCHC 33.8 g/dL (31.0-37.0); MCV 94.7 fL (80.0-100.0); MEAN PLATELET VOLUME 10.3 fL (7.4-10.4); RBC 3.59 10x6/uL (4.00-5.40); RDW 12.9 % (11.5-14.5); WBC 6.3 10x3/uL (4.8-10.8)
[2019-08-20 00:41] LABS: PLATELET COUNT 150 10x3/uL (130-400)
[2019-08-20 00:44] LABS: APTT 30.2 SECONDS (22.8-39.4); INR 1.21 (0.85-1.17); PROTIME 14.8 SECONDS (11.6-15.0)
[2019-08-20 00:47] LABS: D-DIMER-QUANTITATIVE 2.07 ug/mLFEU (0.20-0.54)
[2019-08-20 01:09] LABS: ALKALINE PHOSPHATASE 107 U/L (46-116); ALT (SGPT) 20 U/L (10-68); BILIRUBIN - TOTAL 0.79 mg/dL (0.2-1.3); CALC OSMOLALITY 287 mosm/kg (275-300); CALCIUM 8.9 mg/dL (8.5-10.1); CARBON DIOXIDE 28.5 mmol/L (21.0-32.0); CHLORIDE - SERUM 103 mmol/L (98-107); CREATININE - SERUM 1.5 mg/dL (0.6-1.3); GLUCOSE 122 mg/dL (74-106); PROTEIN - SERUM 6.7 g/dL (6.4-8.2); SODIUM 141 mmol/L (136-145); UREA NITROGEN 28 mg/dL (7-18); eGFR NON AFRICAN AMERICAN 35 mL/min (90-120)
[2019-08-20 01:20] LABS: EOSINOPHILS 8 % (0-7); LYMPHOCYTES 19 % (15-50); MONOCYTES 21 % (2-11); NEUTROPHILS 51 % (40-80); PLATELET ESTIMATE NORMAL
[2019-08-20 01:23] LABS: CKMB 4.2 U/L (0.0-3.6); CREATINE KINASE 163 UL (21-215); TROPONIN-I < 0.017 ng/mL (0.000-0.060)
[2019-08-20 01:51] LABS: MAGNESIUM - SERUM 0.8 mg/dL (1.8-2.4)
--- NOTE | 2019-08-20 02:33 | NUR ---
PT BACK FROM VQ SCAN DAUGHTER AT BEDSIDE. DENIES NEEDS.
--- NOTE | 2019-08-20 03:10 | NUR ---
PT VOMITED SMALL AMOUNT CLEAR/YELLOW EMESIS. MD INFORMED SEE EMAR.
[2019-08-20] MEDS ORDERED: OCTREOTIDE50 MCG/1 M IV (03:14)
--- NOTE | 2019-08-20 04:53 | NUR ---
ADMIT TO ROOM 2127 FROM ER. ACCOMPANIED BY HER DAUGHTER. ALERT/ORIENTED. ADMISSION ASSESSMENT AND HISTORY COMPLETED. HOME MEDS REVIEWED WITH DAUGHTER. NONLABORED RESPIRATIONS ON ROOM AIR. 2ND BAG OF IV MAGNESIUM UP AND INFUSING UPON ARRIVAL TO UNIT. PT PLACED ON CONTACT PRECAUTIONS DUE TO RIGHT HIP/THIGH SHINGLES/NO OPEN LESIONS/ALL SCABBED OVER. ORIENTED TO ROOM. CALL LIGNT IN REACH. PLAN OF CARE INITIATED. DAUGHTER NOW LEAVING FOR HOME.
[2019-08-20 07:53] LABS: CKMB 8.3 U/L (0.0-3.6); CREATINE KINASE 206 UL (21-215)
--- NOTE | 2019-08-20 07:54 | NUR ---
ASSESSMENT COMPLETED. TELEMERTY SHOWS CAF. PT ALSO HAS A PACEMAKER. RIGHT THIGH HAS SCABS FROM SHINGLES. SHE IS IN CONTACT ISOLATION FOR SHINGLES. PT HAS A COLOSTOMY TO LEFT LOWER ABD. DEBIES ANY NEEDS. RITA BRUCE
[2019-08-20 07:56] LABS: TROPONIN-I 0.732 ng/mL (0.000-0.060)
--- NOTE | 2019-08-20 11:28 | NUR ---
I have reviewed this patient and I concur with the Shift Assessment completed by the Licensed Practical Nurse today this shift.
[2019-08-20 13:38] LABS: CKMB 1.4 U/L (0.0-3.6); CREATINE KINASE 261 UL (21-215)
[2019-08-20 13:39] LABS: TROPONIN-I 1.997 ng/mL (0.000-0.060)
--- NOTE | 2019-08-20 17:18 | NUR ---
UP TO BR WITH HELP. GAIT SLOW AND A LITTLE UNSTEADY
--- NOTE | 2019-08-20 19:50 | NUR ---
PT SITTING IN BED ALERT AND ORIENTED X4 AT THIS TIME. NO S/S OF DISTRESS AT THIS TIME. RR EVEN AND UNLABORED. BED LOW CALL LIGHT WITHIN REACH. WILL CONTINUE TO MONITOR.
--- NOTE | 2019-08-20 22:45 | NUR ---
ASSISTED PT BACK TO BED FROM RESTROOM. PT A LITTLE CONFUSED ABOUT PLACE. RE-ORIENTED PT. NO S/S OF DISTRESS. BED LOW CALL LIGHT WITHIN REACH WILL CONTINUE TO MONITOR.
[2019-08-21 00:11] VITALS: BP 145/81
--- NOTE | 2019-08-21 00:48 | NUR ---
I have reviewed this patient and I concur with the Shift Assessment completed by the Licensed Practical Nurse today this shift.
--- NOTE | 2019-08-21 03:02 | NUR ---
PT RESTING IN BED WITH EYES CLOSED RR EVEN AND UNLABORED. BED LOW CALL LIGHT WITHIN REACH. WILL CONTINUE TO MONITOR.
[2019-08-21 04:24] VITALS: BP 162/88
[2019-08-21 06:25] LABS: BASOPHILS 0.7 % (0-2); EOSINOPHILS 4.2 % (0-7); HEMATOCRIT 36.5 % (36.0-48.0); HEMOGLOBIN 12.6 g/dL (12-16); IMMATURE GRANULOCYTES 0.1 % (0-5); LYMPHOCYTES 24.8 % (15-50); MCH 32.1 pg (26.0-34.0); MCHC 34.5 g/dL (31.0-37.0); MCV 93.1 fL (80.0-100.0); MEAN PLATELET VOLUME 10.5 fL (7.4-10.4); MONOCYTES 14.2 % (2-11); PLATELET COUNT 173 10x3/uL (130-400); RBC 3.92 10x6/uL (4.00-5.40); RDW 13.1 % (11.5-14.5); WBC 7.6 10x3/uL (4.8-10.8)
[2019-08-21 06:33] LABS: ANION GAP 11.6 mmol/L (8-16); CALCIUM 9.6 mg/dL (8.5-10.1); CARBON DIOXIDE 29.6 mmol/L (21.0-32.0); PHOSPHOROUS 2.4 mg/dL (2.5-4.9); POTASSIUM - SERUM 4.2 mmol/L (3.5-5.1)
[2019-08-21 06:34] LABS: CREATININE - SERUM 1.1 mg/dL (0.6-1.3); MAGNESIUM - SERUM 1.5 mg/dL (1.8-2.4)
[2019-08-21 07:53] VITALS: BP 183/97
--- NOTE | 2019-08-21 08:44 | HP ---
PATIENT: JOHN CHAUDHRY MEDICAL RECORD: [id number] ACCOUNT: [id number] LOCATION:[address] : 33 ADMISSION DATE: 08/20/19 PCP: KALYN BAIN MD HISTORY AND PHYSICAL EXAMINATION DATE OF ADMISSION: 08/20/2019 CHIEF COMPLAINT: Chest pain. HISTORY OF PRESENT ILLNESS: This is an 84-year-old white female who was followed by Carolyn Meza APN, at [facility], and was just seen there a few days ago for a diagnosis of shingles to the right upper thigh area. She was started on Famvir 500 mg 3 times a day. The patient has dementia and is not considered a reliable source for her history. Her daughter is left for the day, but the report was she started having chest pain approximately 9:00 p.m. on 08/19/1209. It was described as a tightness and was accompanied by nausea and diaphoresis. She did have some shortness of breath as well. She has a history of coronary artery disease and a history of atrial fibrillation. She was brought to the ER where her initial troponin was normal at less than 0.017; however, her second troponin was elevated at 0.732. Her D-dimer was elevated and her magnesium was low. She is admitted for further care. Cardiology has been consulted. PAST MEDICAL AND SURGICAL HISTORY: She has dementia. 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 She has chronic atrial fibrillation and history of coronary artery disease, followed by Dr. Granados. She has hypertension, hypothyroidism, anemia, hyperlipidemia, peripheral neuropathy. PAST SURGICAL HISTORY: She has a pacemaker. 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 She has had cataract repair. She has had coronary stent. ALLERGIES: PENICILLIN. HOME MEDICATIONS: Diltiazem 60 mg twice a day; warfarin, uncertain dose; vitamin D3 5000 units 2 a day; levothyroxine 50 mcg a day; donepezil 5 mg a day; nitroglycerin p.r.n.; metoprolol 12.5 mg twice a day; gabapentin 100 mg 1 in the morning and 2 at bedtime; Imodium 2 mg 3 times a day; cholestyramine packet as needed for loose bowel; aspirin 81 mg a day; Famvir 500 mg t.i.d. HABITS: Former smoker. She has an occasional alcoholic beverage. No illicit drug use. FAMILY HISTORY: Father at 85 of heart disease. Mother at 61 of ovarian cancer. REVIEW OF SYSTEMS: GENERAL: No major weight changes. HEENT: No particular sinus or allergy problems. RESPIRATORY: No history of COPD or emphysema. CARDIAC: See above history, followed by Dr. Granados for heart disease and atrial fibrillation, on Coumadin. She has a pacemaker. GASTROINTESTINAL: Has short gut syndrome. GENITOURINARY: No significant problems there. HISTORY AND PHYSICAL [id number] JOHN CHAUDHRY MUSCULOSKELETAL: No significant problems there. NEUROLOGICAL: She has short-term memory loss and is not a good historian. PSYCHIATRIC: Denies depression or melancholia. PHYSICAL EXAMINATION: VITAL SIGNS: Temperature 97.5, pulse 79, respirations 18, blood pressure 197/92, O2 sat 98%. GENERAL: Generally, she was napping, easily awakened, but pleasantly confused. SKIN: Warm and dry except in the right upper thigh area. There are scattered lesions could be consistent with shingles, although they are not very painful. HEENT: Grossly within normal limits. NECK: Supple. HEART: Atrial fibrillation with a controlled rate. LUNGS: Fairly clear. ABDOMEN: Soft. EXTREMITIES: No edema. LABORATORY DATA AND DIAGNOSTIC DATA: Chest x-ray shows no acute process. A pacemaker is in place. D-dimer elevated at 2.07. INR 1.21. CBC with a white count of 6300, hemoglobin 11.5, hematocrit 34. Basic metabolic panel is all okay except BUN 28, creatinine 1.5. Troponin first draw was less than 0.017, second draw 0.732, third draw 1.997. Magnesium low at 0.8. V/Q scan was done showing low probability of PE. ASSESSMENT: 1. Non-Q-wave myocardial infarction. 2. Shingles. 3. History of heart disease. 4. Dementia. 5. Atrial fibrillation. PLAN: Cardiology is consulted. Further recommendations as warranted. TRANSINT:[id number] Voice Confirmation ID: [id number] DOCUMENT ID: [id number] AALIYAH GARCIA MD at 0844 CC: [id number] DICTATION DATE: 08/20/19 1521 TERRITORY SALES MANAGER: 08/20/19 1615 ADM IN [id number] [place] [address]
--- NOTE | 2019-08-21 09:29 | NUR ---
PATIENT HAS SHINGLES ON HER RIGHT THIGH. DR BUTTS WANTS TO DO A ANGIOGRAM, HER TRIPONIN IS ELEVATED. HER B/P HAS BEEN HIGH, SO I GAVE HER B/P PILL EARLY. WILL CALL INFECTION CONTROL TO SEE IF SHE CAN GO TO HAVE THE PROCEDURE DONE OR NOT. DR GARCIA SAID HE IS THE ADMITTING DR, NOT DR BAIN.
--- NOTE | 2019-08-21 10:06 | NUR ---
CALLED INFECTION CONTROL FOR DR GARCIA. WAITING TO SEE WHAT THEY SAY.
[2019-08-21 11:03] VITALS: BP 113/62
--- NOTE | 2019-08-21 11:26 | NUR ---
DR FLEMING SAYS THAT PATIENT CAN HAVE A LUNCH TRAY, AND SHE WILL BE THE LAST CASE OF THE DAY. SO THEY CAN KEEP EVERYTHING CLEAN .
--- NOTE | 2019-08-21 11:48 | NUR ---
PATIENT IS OFF ISOLATION. SHE HAS ONE SPOT OF SHINGLES ON HER RIGHT THIGH. DR FLEMING WILL BE GOING THROUGH THE LEFT GROIN OR WRIST.
[2019-08-21 14:25] VITALS: Ht 170.2 cm; Wt 49.3 kg
[2019-08-21 15:37] VITALS: BP 118/65
--- NOTE | 2019-08-21 16:00 | NUR ---
PATIENT IS GOING TO LEATHER COVERER. IV IN PATIENT LEFT WRIST INFILTRATED. I WAS NOT ABLE TO GIVE THE BENADRYL. IV REMOVED WITH CATHETER INTACT.
--- NOTE | 2019-08-21 18:16 | NUR ---
PATIENT IS BACK FROM COMMUNITY ENGAGEMENT COORDINATOR. SHE GOT BACK 1658 AND IN REPORT WENOTED THAT THE WEIGHT IN THE EMAR WAS INCORRECT. THE ADMISSION WEIGHT WAS INCORRECT AND ON THE CHART DID NOT MATCH. THE MEDS GIVEN IN COMMUNITY ENGAGEMENT COORDINATOR WERE FOR A HEAVIER ZAHIRA. REPORTED TO DR FLEMING. WE DID A C-STARS. THERE IS NO BLEEDING AT THE SITE. THE PATIENT DID HAVE CUMADIN THIS MORNING ORDERED AND IT WAS REPORTED. I DID NOT DOUBLE CHECK THE WEIGHT, AND THE ADMISSION WEIGHT CHARTED LAST NIGHT WHEN THE PATIENT WAS ADMITTED WAS INCORRECT. THE PATIETN FAMILY REPORTED TO DR FLEMING THAT THE PATIENT IS A PLAVIX NON REPONDER. CORRECT MEDICATION ADDED TO MEDICATION LIST. CONTINUING TO MONITOR CLOSELY. THERE IS A FEMSTOP IN PLACE. NO BLEEDING AND NO HEMATOMA NOTED. PATIENT IS RESTING QUIETLY AT THIS TIME.
--- NOTE | 2019-08-21 19:35 | NUR ---
PATIENT IS DOING WELL, SHE IS AROUSABLE. NO BLEEDING, NO HEMATOMA NOTED.
[2019-08-21 20:00] VITALS: BP 123/76
--- NOTE | 2019-08-21 22:15 | NUR ---
EXOSEAL REMOVED FROM PT LEFT FEMORAL. NO BLEEDING BANDAGE C/D/I. NO NODULES FELT. PT IS SITTING UPRIGHT IN BED AT THIS TIME. NO S/S OF DISTRESS. PT DENIES ANY PAIN OR NEEDS AT THIS TIME. BED LOW CALL LIGHT WITHIN REACH. WILL CONTINUE TO MONITOR.
[2019-08-22] VITALS: BP 164/80
--- NOTE | 2019-08-22 00:37 | NUR ---
ASSISTED PT TO BATHROOM. WILL CONTINUE TO MONITOR.
--- NOTE | 2019-08-22 04:56 | NUR ---
I have reviewed this patient and I concur with the Shift Assessment completed by the Licensed Practical Nurse today this shift.
--- NOTE | 2019-08-22 07:20 | NUR ---
REPORT RECEIVED. WILL CONTINUE WITH POC. PT CURRENTLY LYING SEMI FOWLERS. CALL LIGHT W/I REACH. PT IS AAO AND UP WITH ASSIST. RR EVEN AND UNLAORED ON RA. L.FOR PIV IS SALINE LOCKED. NO S/S OF DISTRESS NOTED. PT DENIES ANY NEEDS. WILL CTM.
[2019-08-22 08:29] VITALS: BP 142/79
[2019-08-22] MEDS ORDERED: EFFIENT10 MG PO (08:48)
--- NOTE | 2019-08-22 10:48 | NUR ---
I have reviewed this patient and I concur with the Shift Assessment completed by the Licensed Practical Nurse today this shift.
[2019-08-22 11:24] VITALS: BP 113/67
--- NOTE | 2019-08-22 13:38 | OP ---
PATIENT NAME: JOHN CHAUDHRY MEDICAL RECORD: [id number] :33 LOCATION:D.M2 D.2127 ADMISSION DATE:08/20/19 SURGEON: LANDON FLEMING MD DATE OF OPERATION: 08/21/2019 PROCEDURES: 1. PTCA stent LAD. 2. IFR LAD. 3. IFR RCA. 4. Left heart catheterization. 5. Selective coronary angiography. 6. Left ventriculogram. INDICATION: Angina, coronary artery disease, non-Q-wave myocardial infarction. DESCRIPTION OF PROCEDURE: After informed consent was obtained and after a detailed description of the risks, benefits as well as alternative therapies, the patient elected to proceed with angiogram and angioplasty. The right femoral area was prepped and draped in normal sterile fashion. The right femoral artery was cannulated via modified Seldinger technique with placement of 6-Malaysian sheath. All catheters exchanged through this sheath. FINDINGS: Left ventriculogram was performed in standard 30-degree NORRIS view, reveals good cardiac wall motion, ejection fraction 65%. SELECTIVE CORONARY ANGIOGRAPHY: 1. Left main showed no significant angiographic disease. 2. Left anterior descending has previously placed stent with questionable in-stent restenosis at approximately 75%. IFR is abnormal at 0.88. 3. Left circumflex has moderate irregularities, but no flow-limiting stenosis. 4. The right coronary has a questionable 70% stenosis; however, IFR was normal at 1.0. PTCA STENT OF THE LAD: The stent used was a 3.0 x 18 mm Cobra. Result was 0% residual stenosis. OVERALL IMPRESSION: Successful percutaneous transluminal coronary angioplasty stent of the left anterior descending going from 75+% initial stenosis with abnormal IFR to 0% residual stenosis. TRANSINT:[id number] Voice Confirmation ID: [id number] DOCUMENT ID: [id number] LANDON FLEMING MD at 1338 CC: [id number] DICTATION DATE: 08/21/19 1648 SCADA ENGINEER: 08/22/19 0153 ADM IN [place] [id number] [place] [address]
--- NOTE | 2019-08-22 14:35 | NUR ---
PT DISCHARGED HOME VIA WHEELCHAIR WITH FAMILY. PIV REMOVED WITH CATHETER TIP FULLY INTACT. TELEMETRY REMOVED AND RETURNED. PT SIGNED PROPER DISCHARGE INSTRUCTIONS AND REMOVED ALL VALUABLES FROM THE ROOM.
== END 2019-08-22 14:43 | disposition home or self-care (01) ==
LOC: D.ER 23:56 → D.M2 08-20 03:20 → OBSVTIME 08-20 03:20 → D.M2 08-20 03:20
PROVIDERS: Emergency Medicine; ADMIT Family Medicine; ATTEND Family Medicine
DX: I21.4 Non-ST elevation (NSTEMI) myocardial infarction (principal); B02.9 Zoster without complications; F03.90 Unspecified dementia, unspecified severity, without behavioral disturbance, psychotic disturbance, mood disturbance, and anxiety; I48.91 Unspecified atrial fibrillation; I25.119 Atherosclerotic heart disease of native coronary artery with unspecified angina pectoris; Z95.0 Presence of cardiac pacemaker

== ENCOUNTER → 2019-09-04 12:39 | Outpatient (CLI) | payer MEDICARE, OTHER ==
[2019-08-21 14:25] VITALS: BMI 29.7
[~2019-09-04 12:39] MED LIST changes: +DONEPEZIL HCL5 MG PO; +EFFIENT10 MG PO; +FAMVIR500 MG PO; +OCTREOTIDE50 MCG/1 M IV
== END | disposition home or self-care (01) ==
LOC: D.HCCECHO 08-24 14:00
PROVIDERS: ATTEND Internal Medicine Cardiovascular Disease
DX: I35.1 Nonrheumatic aortic (valve) insufficiency (principal)